=== PATIENT | female | born 1950 | race Caucasian/White ===

== ENCOUNTER → 2017-09-17 10:56 | Outpatient (CLI) | payer MEDICARE, MEDICAID, SELFPAY ==
[2017-09-17 11:45] LABS: Base Excess 8 mmol/L (-2 to +2); Blood Gas Specimen Type ART; O2 Delivery Device Nasal Can; PO2 45 mmHG (75-100); SITE R Radial; SO2 79 % (95-99); Time Given 1139; Total Carbon Dioxide 35 mmol/L; pCO2 54.7 mmHg (35-45); pH 7.39 (7.35-7.45)
== END ==
PROVIDERS: Family Provider Family Medicine; PCP Family Medicine; Visit Provider Nurse Practitioner Acute Care
DX: J96.10 Chronic respiratory failure, unspecified whether with hypoxia or hypercapnia (principal)
CPT/HCPCS: 36600; 82803

== ENCOUNTER → 2017-11-09 09:54 | Outpatient (CLI) | payer MEDICARE, MEDICAID, SELFPAY | PROVIDERS: Family Provider Family Medicine; PCP Family Medicine; Visit Provider Nurse Practitioner Acute Care | DX: R06.00 Dyspnea, unspecified (principal); J96.11 Chronic respiratory failure with hypoxia; Z98.890 Other specified postprocedural states | CPT/HCPCS: 93306 ==

== ENCOUNTER → 2018-02-28 11:09 | Outpatient (CLI) | payer MEDICARE, MEDICAID, SELFPAY ==
--- NOTE | 2018-03-01 10:50 | PFT ---
INTRODUCTION: The patient is a 67-year-old female that presents for pulmonary function testing secondary to a diagnosis of COPD. Respiratory therapy reports that the patient did not follow directions. Bronchodilators were used during testing. INTERPRETATION: Forced expiration spirometry demonstrates the presence of a very severe large airways obstructive ventilatory defect. There was a significant response to aerosolized bronchodilators. Spirograms are of poor quality and do not plateau indicating slow emptying of the lungs. Body plethysmography was performed and reveals an elevated RV to 180% of predicted, indicative of underlying air trapping. Diffusing capacity by single breath CO is severely reduced at 17% of predicted. When compared to previous pulmonary function studies dated August 2016 there has been reductions in the patient's FEV1 and DLCO. IMPRESSION: These pulmonary function studies demonstrate the presence of a partially reversible very severe large airways obstructive ventilatory defect with associated air trapping and symmetric reduction in diffusing capacity.
== END ==
PROVIDERS: Family Provider Family Medicine; PCP Family Medicine; Referring Provider Internal Medicine Critical Care Medicine; Visit Provider Internal Medicine Critical Care Medicine
DX: I50.32 Chronic diastolic (congestive) heart failure (principal); J44.9 Chronic obstructive pulmonary disease, unspecified; J96.11 Chronic respiratory failure with hypoxia
CPT/HCPCS: 94060; 94726; 94729

== ENCOUNTER → 2018-03-04 10:59 | Outpatient (CLI) | payer MEDICARE, MEDICAID, SELFPAY ==
[2018-03-04 11:00] VITALS: PULSE 108; PULSE 109; PULSE 111; PULSE 114; PULSE 116; PULSE 90; PULSE 96; O2SAT 83; O2SAT 84; O2SAT 87; O2SAT 88; O2SAT 90; O2SAT 91; O2SAT 94
--- NOTE | 2018-03-04 11:36 | CPS ---
PT ARRIVED ON 5L PULSE DOSE. PLACED ON ROOM AIR. SATS 83% ON ROOM AIR. PT PATIENT BACK ON 5L PULSE DOSE. SATS INCREASED TO 88. PT WALKED AND AT 3 MINUTES HAD TO INCREASE TO 6L CONTINUOS FLOW NC. SATS WERE 84%. MINUTE 4 SATS WERE 90% ON 6L CONTINUOS.
--- NOTE | 2018-03-04 12:39 | PCM.PSN.6M ---
PSN 6 Minute Walk Test - 6 Minute Walk Test 6 Minute Walk Test: 6 Minute Walk Test PSN:6-Minute Walk Test Start: 03/04/18 11:31 Freq: Status: Active Protocol: [id number] Document 03/04/18 11:00 EW (Rec: 03/04/18 11:35 EW [id number]) 6 Minute Walk Test Date Performed 03/04/18 Time Performed 11:00 Height 64 ft Weight: 81.647 kg Weight in Pounds 180.[address]: Wu Nava Assistive device used: None Pre-test Oxygen Delivery Method Room Air Pulse Ox (%) 83 Pulse Rate (60-100 beats/min) 90 Dyspnea Mike Scale (0-10) 1 Exertion Mike Scale (6-20) 8 1st minute Oxygen Flow Rate (L/min) (L/min) 5 Oxygen Delivery Method Nasal Cannula Pulse Ox (%) 88 Pulse Rate (60-100 beats/min) 108 H 2nd minute Oxygen Flow Rate (L/min) (L/min) 5 Oxygen Delivery Method Nasal Cannula Pulse Ox (%) 84 Pulse Rate (60-100 beats/min) 114 H 3rd minute Oxygen Flow Rate (L/min) (L/min) 6 Oxygen Delivery Method Nasal Cannula Pulse Ox (%) 84 Pulse Rate (60-100 beats/min) 111 H Number of Rests Taken 1 4th minute Oxygen Flow Rate (L/min) (L/min) 6 Oxygen Delivery Method Nasal Cannula Pulse Ox (%) 90 Pulse Rate (60-100 beats/min) 109 H 5th minute Oxygen Flow Rate (L/min) (L/min) 6 Oxygen Delivery Method Nasal Cannula Pulse Ox (%) 87 Pulse Rate (60-100 beats/min) 116 H Number of Rests Taken 1 6th minute Oxygen Flow Rate (L/min) (L/min) 6 Oxygen Delivery Method Nasal Cannula Pulse Ox (%) 91 Pulse Rate (60-100 beats/min) 111 H Post-test Oxygen Flow Rate (L/min) (L/min) 6 Oxygen Delivery Method Nasal Cannula Pulse Ox (%) 94 Pulse Rate (60-100 beats/min) 96 Dyspnea Mike Scale (0-10) 3 Exertion Mike Scale (6-20) 13 Full Laps Walked 5 Partial Lap, Number of Tiles Walked 0 Total Distance Walked (ft) 295 03/04/18 11:36 Cardiopulmonary Services by Earlene Raza PT ARRIVED ON 5L PULSE DOSE. PLACED ON ROOM AIR. SATS 83% ON ROOM AIR. PT PATIENT BACK ON 5L PULSE DOSE. SATS INCREASED TO 88. PT WALKED AND AT 3 MINUTES HAD TO INCREASE TO 6L CONTINUOS FLOW NC. SATS WERE 84%. MINUTE 4 SATS WERE 90% ON 6L CONTINUOS. Initialized on 03/04/18 11:36 - END OF NOTE - Interpretation Interpretation: Patient arrived on 5 L pulse dose and was noted to be 83% on room air. Saturations improved to 88% on 5 L pulse dose. At 3 minutes, patient had to be increased to 6 L continuous flow secondary to sats of 84%. Saturations did drop to 87%. In total, patient was able to ambulate only 295 feet over the course of 6 minutes with 2 breaks. These findings are consistent with a respiratory limitation exercise tolerance - Recommendations Recommendations: The patient requires 5 L pulse dose at rest, but at least 6 L continuous flow with any exertion.
== END ==
PROVIDERS: Family Provider Family Medicine; PCP Family Medicine; Referring Provider Internal Medicine Critical Care Medicine; Visit Provider Internal Medicine Critical Care Medicine
DX: I50.32 Chronic diastolic (congestive) heart failure (principal); J44.9 Chronic obstructive pulmonary disease, unspecified; J96.11 Chronic respiratory failure with hypoxia
CPT/HCPCS: 94618

== ENCOUNTER 2018-07-15 16:56 | Inpatient (IN) | payer MEDICARE, MEDICAID, SELFPAY ==
[2018-06-07 11:18] VITALS: BMI 32.5
[2018-07-15] VITALS (12 sets, daily range): BP systolic 115–141; BP diastolic 64–73; PULSE 106–121; RESP 15–28; TEMP 37.1–37.4; O2SAT 87–97; BMI 33.5; BMI 32.1
--- NOTE | 2018-07-15 17:15 | EKG12_ITS ---
Test Reason : SOB Blood Pressure : / mmHG Vent. Rate : 108 BPM Atrial Rate : 108 BPM P-R Int : 120 ms QRS Dur : 088 ms QT Int : 344 ms P-R-T Axes : 056 052 046 degrees QTc Int : 460 ms Sinus tachycardia Otherwise normal ECG Confirmed by CARLEE GREEN, TAMMIE ([id number]), loan expeditor SHARAN ANDRES ([id number]) on 07/17/2018 1:33:38 PM Referred By: ROSALIND Confirmed By:TAMMIE BEJARANO MD
[2018-07-15] MEDS: Albuterol 2.5 MG/3 ML VIAL.NEB. INHALATION ×3 (17:33→17:52)
[2018-07-15] MEDS: Ipratropium/Albuterol Sulfate 3 ML AMPUL.NEB INHALATION ×2 (17:33→22:53)
[2018-07-15] MEDS: MethylPREDNISolone 125 MG/2 ML Vial 60 MG IV (17:52)
--- NOTE | 2018-07-15 17:54 | RAD_ITS ---
STUDY: X-RAY CHEST REASON FOR EXAM: Female, 67 years old. Dyspnea, hypoxia, cough TECHNIQUE: PA and lateral views of the chest. COMPARISON: Prior study of 06/21/2014 FINDINGS: There are streaky fibrotic or atelectatic changes of the lung bases. There is no demonstrated pleural abnormality. Normal size heart. Normal mediastinum and ronnie. Normal visualized pulmonary arteries. There are calcified plaques of the aortic arch. Normal visualized thoracic spine. Normal visualized ribs, clavicles, and shoulders. There is no demonstrated abnormality of the visualized soft tissue structures of the upper abdomen. RAD/Chest PA and Lateral IMPRESSION: Streaky fibrotic or atelectatic changes of the lung bases, new in the interval. Calcified plaques of the aortic arch. Electronically Signed: Alexy Plaza MD at 18:14 EDT , Service support ,
--- NOTE | 2018-07-15 17:59 | CPS ---
Per pt and family pt wears 6L oxygen and is non-compliant with pap therapy at home.
[2018-07-15 18:03] LABS: Absolute Lymphocyte Count 3.98 X10^3/ul (0.83-4.51); Basophil# 0.01 X10^3/uL; Hematocrit 36.7 % (37-47); Hemoglobin 11.2 g/dl (12.0-15.0); Lymphocyte # 3.98 X10^3/ul (4.0); Lymphocyte % 18.2 % (19-41); Mean Corp Hgb Conc 30.5 g/gl (32-36); Mean Corpuscular Hgb 28.9 pg (27.0-32.0); Mean Corpuscular Volume 94.8 fL (81-99); Mean Platelet Vol. 9.7 fl (6.2-12.0); Monocyte# 0.74 X10^3/uL; Monocyte% 3.4 % (0-10); Neutrophil # 16.95 X10^3/uL (2.7-7.7); Neutrophil % 77.8 % (47-70); POSITIVE COUNT NO; POSITIVE DIFFERENTIAL NO; POSITIVE MORPHOLOGY NO; Platelet Count 250 K/mm3 (150-450); RBC Distribution Width CV 13.7 % (11.6-14.6); RBC Distribution Width SD 47.2 fl (35.1-43.9); Red Blood Count 3.87 M/mm3 (4.2-5.4); White Blood Count 21.8 K/mm3 (4.4-11.0)
[2018-07-15 18:13] LABS: Anion Gap 4 (5-15); BUN 19 mg/dL (7-18); BUN/Creat Ratio 15.4 RATIO (10-20); Calcium,Total 8.6 mg/dL (8.5-10.1); Chloride 96 mmol/L (98-107); Creatinine, Serum 1.23 mg/dL (0.55-1.02); EST Glomerular Filtration Rate 46 mL/min (>60); Est Glom Filt Rate - Afr Amer 56 mL/min (>60); Estimated Creatinine Clearance 37.28 ml/min; Glucose 211 mg/dL (74-106); Potassium 5.3 mmol/L (3.5-5.1); Sodium Level 135 mmol/L (136-145)
--- NOTE | 2018-07-15 19:28 | ED.VIS.GEN ---
History of Present Illness Chief Complaint: Shortness of Breath Informant: Patient, Family Onset: Days Context: Sudden Onset Timing: Continuous Quality: Increased shortness of breath, productive cough and wheezing Location: Respiratory Current Severity: Moderate Maximum Severity: Severe Worsened by: Activity Relieved by: Nothing Associated Symptoms: Patient is O2 dependent, 6 L by nasal cannula Narrative: Patient is an elderly woman with history of COPD on home oxygen at 6 L by nasal cannula. Her insulation hoseman is Dr. Wu Nava. She presents with cough that is productive, subjective fever, shortness of breath at rest and increased shortness of breath with minimal activity. She does complain of nasal symptoms. She reports immunization for influenza and Pneumovax. She denies history of PE or DVT. She denies leg pain, swelling or discoloration. She states she does not feel well. Prior similar symptoms: Yes Recent Illness/Hospitalization: No - Past Medical History (1) COPD exacerbation Status: Acute (2) Chronic diastolic CHF (congestive heart failure) Status: Chronic (3) Chronic hypoxemic respiratory failure Status: Chronic (4) Chronic respiratory failure Status: Chronic (5) Crohn's disease in remission Status: Chronic Past Medical History - Allergies and Home Meds Allergies/Adverse Reactions: Allergies No Known Allergies Allergy (Verified 07/15/18 16:57) Primary Care Physician: Darien Beard DO [Primary Care Provider] - Prior records reviewed: Yes Surgical History: noncontributory, - Lives: With Family Smoking Status: Former smoker Alcohol: None Drugs: None - Family History Maternal Family History: Family History (Last Reviewed 03/11/18 @ 11:27 by MEKHI Mckeon) Mother Colon cancer Father Heart disease Mother Heart disease Family History: Reports: Cancer - Colorectal Paternal Family History: Family History (Last Reviewed 03/11/18 @ 11:27 by MEKHI Mckeon) Mother Colon cancer Father Heart disease Mother Heart disease Family History: Reports: Heart Disease - ?[place] Review of Systems General: Reports: Chills, Fever, Subjective. Denies: Sweats, Weight loss Eyes: Denies: Visual changes - bilaterally, Diplopia ENT: Denies: Bilateral ear pain, Rhinorrhea, Sore throat Cardiovascular: Reports: Palpitations. Denies: Chest pain, Heart racing Respiratory: Reports: Dyspnea, Cough, Sputum, Dyspnea on exertion. Denies: Orthopnea, Paroxysmal nocturnal dyspnea Gastrointestinal: Denies: Abdominal pain, Nausea, Vomiting, Diarrhea, Melena, Hematochezia Genitourinary: Denies: Dysuria, Hematuria, Frequency Musculoskeletal: Denies: Back pain, Extremity Pain Skin: Denies: Rash, Wounds Neurological: Denies: Headache, Weakness, Numbness Hematologic: Denies: Easy bruising, Easy bleeding Allergy: Denies: Uticaria, Swelling of the mouth Physical Exam Vital Signs/Narrative: Vital Signs Temp Pulse Resp BP Pulse Ox 07/15/18 18:00 121 H 20 H 96 07/15/18 16:57 99.0 F 113 H 20 H 121/64 H 87 Inital Vital Signs reviewed: Yes General: Well nourished, Well developed, Acute Distress Head: Normocephalic, Atraumatic Eyes: Perrl, EOMI. Negative for: Pale conjunctiva, Scleral icterus ENT: Moist mucous membranes, No rhinorrhea, TM's clear Neck: Supple, Nontender, No lymphadenopathy, No JVD, - Cardiovascular: Regular rhythm, No murmurs, Normal S1, Normal S2, Tachycardia Respiratory: Chest nontender, Rales, Wheezing, Decreased Air Movement, - - There is use of accessory muscles. Abdomen: Soft, Nontender, Nondistended, Normal bowel sounds, No masses Back: Nontender, Normal Inspection Extremities: Nontender, No edema, - - There is no asymmetry, swelling, discoloration, leg vein distention, palpable cords or tenderness along the distribution of the deep venous system. Skin: Normal color, No rash. Negative for: Cyanosis, Jaundice Neurological: Alert, Oriented x3, Cranial nerves II-XII grossly intact, Normal Strength, Normal Sensation Psychological: Normal affect, Normal Mood Diagnostic/Tx/Re-eval Chest X-Ray - ED: 2 View, Read by ED Physician, Normal, Heart, Mediastinum, Bony Structures, Chronic Changes, - - Changes noted at both bases. There is no discrete infiltrate. Impressions Chest X-Ray 07/15/18 17:54 IMPRESSION: Streaky fibrotic or atelectatic changes of the lung bases, new in the interval. Calcified plaques of the aortic arch. Electronically Signed: Alexy Plaza MD at 18:14 EDT , Service support , 07/15/18 17:54 Chest PA and Lateral [RAD] Stat Laboratory Results 07/15/18 07/15/18 17:45 17:45 WBC 21.8 H RBC 3.87 L Hgb 11.2 L Hct 36.7 L MCV 94.8 MCH 28.9 MCHC 30.5 L RDW 13.7 RDW Differential 47.2 H Plt Count 250 MPV 9.7 Immature Gran % (Auto) 0.600 Neut % (Auto) 77.8 H Lymph % (Auto) 18.2 L [place] % (Auto) 3.4 Eos % (Auto) 0.0 Baso % (Auto) 0.0 Absolute Neuts (auto) 17.0 H Absolute Lymphs (auto) 3.98 Total Counted Not Reportable Sodium 135 L Potassium 5.3 H Chloride 96 L Carbon Dioxide 35.0 H Anion Gap 4 L BUN 19 H Creatinine 1.23 H Estim Creat Clear Calc 37.28 Est GFR (MDRD) Af Amer 56 L Est GFR (MDRD) Non-Af 46 L BUN/Creatinine Ratio 15.4 Glucose 211 H Calcium 8.6 Impressions Chest X-Ray 07/15/18 17:54 IMPRESSION: Streaky fibrotic or atelectatic changes of the lung bases, new in the interval. Calcified plaques of the aortic arch. Electronically Signed: Alexy Plaza MD at 18:14 EDT , Service support , 07/15/18 17:54 Chest PA and Lateral [RAD] Stat Laboratory Results 07/15/18 07/15/18 17:45 17:45 WBC 21.8 H RBC 3.87 L Hgb 11.2 L Hct 36.7 L MCV 94.8 MCH 28.9 MCHC 30.5 L RDW 13.7 RDW Differential 47.2 H Plt Count 250 MPV 9.7 Immature Gran % (Auto) 0.600 Neut % (Auto) 77.8 H Lymph % (Auto) 18.2 L [place] % (Auto) 3.4 Eos % (Auto) 0.0 Baso % (Auto) 0.0 Absolute Neuts (auto) 17.0 H Absolute Lymphs (auto) 3.98 Total Counted Not Reportable Sodium 135 L Potassium 5.3 H Chloride 96 L Carbon Dioxide 35.0 H Anion Gap 4 L BUN 19 H Creatinine 1.23 H Estim Creat Clear Calc 37.28 Est GFR (MDRD) Af Amer 56 L Est GFR (MDRD) Non-Af 46 L BUN/Creatinine Ratio 15.4 Glucose 211 H Calcium 8.6 - Medical Decision Making With subjective fever, shortness of breath, productive cough history of COPD on oxygen need to evaluate for exacerbation of COPD versus pneumonia. Need to rule out pneumothorax. Doubt pulmonary embolus but always in the diagnosis. With elevated white count lactate and blood cultures were obtained. She did receive dose of levofloxacin. Since she does not have obvious source she was not diagnosed with sepsis. She received DuoNeb, 3 albuterol treatments, Solu-Medrol IV push. ED Disposition - Plan for ED Patient: Disposition: Acute Care Hospital [facility] Diagnosis: COPD with exacerbation, Leukocytosis, Sinus tachycardia by electrocardiogram, Hypoxia Referrals: Darien Beard DO [Primary Care Provider] -
--- NOTE | 2018-07-15 19:33 | ED.DCSUM_ITS ---
History of Present Illness Chief Complaint: Shortness of Breath Informant: Patient, Family Onset: Days Context: Sudden Onset Timing: Continuous Quality: Increased shortness of breath, productive cough and wheezing Location: Respiratory Current Severity: Moderate Maximum Severity: Severe Worsened by: Activity Relieved by: Nothing Associated Symptoms: Patient is O2 dependent, 6 L by nasal cannula Narrative: Patient is an elderly woman with history of COPD on home oxygen at 6 L by nasal cannula. Her sales mgr is Dr. Wu Nava. She presents with cough that is productive, subjective fever, shortness of breath at rest and increased sh ortness of breath with minimal activity. She does complain of nasal symptoms. She reports immunization for influenza and Pneumovax. She denies history of PE or DVT. She denies leg pain, swelling or discoloration. She states she does not feel well. Prior similar symptoms: Yes Recent Illness/Hospitalization: No - Past Medical History (1) COPD exacerbation Status: Acute (2) Chronic diastolic CHF (congestive heart failure) Status: Chronic (3) Chronic hypoxemic respiratory failure Status: Chronic (4) Chronic respiratory failure Status: Chronic (5) Crohn's disease in remission Status: Chronic Past Medical History - Allergies and Home Meds Allergies/Adverse Reactions: Allergies No Known Allergies Allergy (Verified 07/15/18 16:57) Primary Care Physician: Darien Beard DO [Primary Care Provider] - Prior records reviewed: Yes Surgical History: noncontributory, - Lives: With Family Smoking Status: Former smoker Alcohol: None Drugs: None - Family History Maternal Family History: Family History (Last Reviewed 03/11/18 @ 11:27 by MEKHI Mckeon) Mother Colon cancer Father Heart disease Mother Heart disease Family History: Reports: Cancer - Colorectal Paternal Family History: Family History (Last Reviewed 03/11/18 @ 11:27 by MEKHI Mckeon) Mother Colon cancer Father Heart disease Mother Heart disease Family History: Reports: Heart Disease - ?[place] Review of Systems General: Reports: Chills, Fever, Subjective. Denies: Sweats, Weight loss Eyes: Denies: Visual changes - bilaterally, Diplopia ENT: Denies: Bilateral ear pain, Rhinorrhea, Sore throat Cardiovascular: Reports: Palpitations. Denies: Chest pain, Heart racing Respiratory: Reports: Dyspnea, Cough, Sputum, Dyspnea on exertion. Denies: Orthopnea, Paroxysmal nocturnal dyspnea Gastrointestinal: Denies: Abdominal pain, Nausea, Vomiting, Diarrhea, Melena, Hematochezia Genitourinary: Denies: Dysuria, Hematuria, Frequency Musculoskeletal: Denies: Back pain, Extremity Pain Skin: Denies: Rash, Wounds Neurological: Denies: Headache, Weakness, Numbness Hematologic: Denies: Easy bruising, Easy bleeding Allergy: Denies: Uticaria, Swelling of the mouth Physical Exam Vital Signs/Narrative: Vital Signs Temp Pulse Resp BP Pulse Ox 07/15/18 18:00 121 H 20 H 96 07/15/18 16:57 99.0 F 113 H 20 H 121/64 H 87 Inital Vital Signs reviewed: Yes General: Well nourished, Well developed, Acute Distress Head: Normocephalic, Atraumatic Eyes: Perrl, EOMI. Negative for: Pale conjunctiva, Scleral icterus ENT: Moist mucous membranes, No rhinorrhea, TM's clear Neck: Supple, Nontender, No lymphadenopathy, No JVD, - Cardiovascular: Regular rhythm, No murmurs, Normal S1, Normal S2, Tachycardia Respiratory: Chest nontender, Rales, Wheezing, Decreased Air Movement, - - There is use of accessory muscles. Abdomen: Soft, Nontender, Nondistended, Normal bowel sounds, No masses Back: Nontender, Normal Inspection Extremities: Nontender, No edema, - - There is no asymmetry, swelling, discoloration, leg vein distention, palpable cords or tenderness along the distribution of the deep venous system. Skin: Normal color, No rash. Negative for: Cyanosis, Jaundice Neurological: Alert, Oriented x3, Cranial nerves II-XII grossly intact, Normal Strength, Normal Sensation Psychological: Normal affect, Normal Mood Diagnostic/Tx/Re-eval Chest X-Ray - ED: 2 View, Read by ED Physician, Normal, Heart, Mediastinum, Bony Structures, Chronic Changes, - - Changes noted at both bases. There is no discrete infiltrate. Impressions Chest X-Ray 07/15/18 17:54 IMPRESSION: Streaky fibrotic or atelectatic changes of the lung bases, new in the interval. Calcified plaques of the aortic arch. Electronically Signed: Alexy Plaza MD at 18:14 EDT , Service support , 07/15/18 17:54 Chest PA and Lateral [RAD] Stat Laboratory Results 07/15/18 07/15/18 17:45 17:45 WBC 21.8 H RBC 3.87 L Hgb 11.2 L Hct 36.7 L MCV 94.8 MCH 28.9 MCHC 30.5 L RDW 13.7 RDW Differential 47.2 H Plt Count 250 MPV 9.7 Immature Gran % (Auto) 0.600 Neut % (Auto) 77.8 H Lymph % (Auto) 18.2 L [place] % (Auto) 3.4 Eos % (Auto) 0.0 Baso % (Auto) 0.0 Absolute Neuts (auto) 17.0 H Absolute Lymphs (auto) 3.98 Total Counted Not Reportable Sodium 135 L Potassium 5.3 H Chloride 96 L Carbon Dioxide 35.0 H Anion Gap 4 L BUN 19 H Creatinine 1.23 H Estim Creat Clear Calc 37.28 Est GFR (MDRD) Af Amer 56 L Est GFR (MDRD) Non-Af 46 L BUN/Creatinine Ratio 15.4 Glucose 211 H Calcium 8.6 Impressions Chest X-Ray 07/15/18 17:54 IMPRESSION: Streaky fibrotic or atelectatic changes of the lung bases, new in the interval. Calcified plaques of the aortic arch. Electronically Signed: Alexy Plaza MD at 18:14 EDT , Service support , 07/15/18 17:54 Chest PA and Lateral [RAD] Stat Laboratory Results 07/15/18 07/15/18 17:45 17:45 WBC 21.8 H RBC 3.87 L Hgb 11.2 L Hct 36.7 L MCV 94.8 MCH 28.9 MCHC 30.5 L RDW 13.7 RDW Differential 47.2 H Plt Count 250 MPV 9.7 Immature Gran % (Auto) 0.600 Neut % (Auto) 77.8 H Lymph % (Auto) 18.2 L [place] % (Auto) 3.4 Eos % (Auto) 0.0 Baso % (Auto) 0.0 Absolute Neuts (auto) 17.0 H Absolute Lymphs (auto) 3.98 Total Counted Not Reportable Sodium 135 L Potassium 5.3 H Chloride 96 L Carbon Dioxide 35.0 H Anion Gap 4 L BUN 19 H Creatinine 1.23 H Estim Creat Clear Calc 37.28 Est GFR (MDRD) Af Amer 56 L Est GFR (MDRD) Non-Af 46 L BUN/Creatinine Ratio 15.4 Glucose 211 H Calcium 8.6 - Medical Decision Making With subjective fever, shortness of breath, productive cough history of COPD on oxygen need to evaluate for exacerbation of COPD versus pneumonia. Need to rule out pneumothorax. Doubt pulmonary embolus but always in the diagnosis. With elevated white count lactate and blood cultures were obtained. She did receive dose of levofloxacin. Since she does not have obvious source she was not diagnosed with sepsis. She received DuoNeb, 3 albuterol treatments, Solu-Medrol IV push. ED Disposition - Plan for ED Patient: Disposition: Acute Care Hospital [facility] Diagnosis: COPD with exacerbation, Leukocytosis, Sinus tachycardia by electrocardiogram, Hypoxia Referrals: Darien Beard DO [Primary Care Provider] -
--- NOTE | 2018-07-15 19:52 | PCM.HP.STD ---
Problem List (1) Chronic diastolic CHF (congestive heart failure) Status: Chronic (2) Stage 4 very severe COPD by GOLD classification Status: Chronic Comment: FEV1 23% predicted (3) ileastomy reversal Status: Chronic (4) Chronic hypoxemic respiratory failure Status: Chronic (5) Anxiety disorder Status: Chronic Qualifiers: Anxiety disorder type: unspecified anxiety disorder Qualified Code(s): F41.9 - Anxiety disorder, unspecified (6) Crohn's disease in remission Status: Chronic (7) COPD (chronic obstructive pulmonary disease) Status: Chronic History of Present Illness Date of Admission: 07/15/18 Chief Complaint: Chest hurts, shortness of breath. The patient is a 67 year old F with past medical history as mentioned above presented to the emergency room because of shortness of breath and chest pain. The patient is very poor informant and was not able to provide consistent history. Initially, she mentioned that the main thing that brought her in today is chest hurting. Later, she mentioned that she came in because of both chest pain or shortness of breath. She states that she has been sick for a week with chest pain, across upper chest, not radiating, associated with shortness of breath at rest which aggravated by minimal activity, not relieved by rest. She reports associated cough with small amount of clear sputum. She complained of subjective fever at home with sweating. She denied sore throat, sinus or nasal congestion. She has history of severe COPD with chronic hypoxic respiratory failure on oxygen at 6 L at baseline. She has history of Crohn's disease status post surgery and reversal of ileostomy and appeared to be stable and in remission. She has history of anxiety and depression and she has been on mirtazapine, BuSpar and Ativan as needed. In the emergency department, patient was afebrile, dyspneic, tachypneic and tachycardic, pulse ox was 87% on 5 L on arrival. Routine blood work was remarkable for leukocytosis, hemoglobin of 11.2 g/dL, potassium of 5.3, BUN of 123. Her lactic acid was 2. EKG revealed sinus tachycardia, normal QRS, normal [place] interval, no acute ischemic changes. Chest x-ray showed bilateral basilar atelectasis with fibrotic changes, no acute infiltrate or consolidation. She is being admitted for acute COPD exacerbation with acute on chronic hypoxic respiratory failure Past Medical History Past Medical History (Chronic Problems): Chronic Problems (Last Updated 07/15/18 @ 19:52 by Syed Figueroa MD) COPD with exacerbation (Chronic) Chronic diastolic CHF (congestive heart failure) (Chronic) Stage 4 very severe COPD by GOLD classification (Chronic) FEV1 23% predicted ileastomy reversal (Chronic) Chronic hypoxemic respiratory failure (Chronic) Anxiety disorder (Chronic) Crohn's disease in remission (Chronic) COPD (chronic obstructive pulmonary disease) (Chronic) Medical History: Medical History (Last Updated 07/15/18 @ 19:52 by Syed Figueroa MD) ileastomy reversal (Chronic) Chronic hypoxemic respiratory failure (Chronic) J96.11 Anxiety disorder (Chronic) F41.9 Crohn's disease in remission (Chronic) K50.90 COPD (chronic obstructive pulmonary disease) (Chronic) J44.9 Allergies No Known Allergies Allergy (Verified 07/15/18 16:57) Home Medications: Ambulatory Orders Medication Instructions Recorded Acetaminophen [Tylenol Tablet] 650 mg PO Q6H PRN PRN #0 tab 07/07/14 Lorazepam [Ativan] 0.5 mg PO Q6H PRN PRN #14 tab 07/07/14 albuterol sulfate 2.5 mg/3 mL 2.5 mg INHALATION Q4H #180 vial 18 (0.083 %) solution for nebulization albuterol sulfate HFA 90 2 puff INHALATION Q6H PRN #18 g 04/04/18 mcg/actuation aerosol inhaler Budesonide/Formoterol 160/4.5 2 puff INHALATION BID 07/15/18 [Symbicort] Famotidine [Pepcid] 20 mg PO BID 07/15/18 Mirtazapine [Remeron] 7.5 - 15 mg PO QHS 07/15/18 Psyllium Husk (with Sugar) 7 gm PO BID 07/15/18 [Wal-Mucil 100% Natural Fiber] Umeclidinium [place] Inhaler 1 inh INHALATION DAILY 07/15/18 [Incruse Ellipta] busPIRone [Buspar] 15 mg PO TID 07/15/18 Surgical History: - - Intestinal surgery/ileostomy for Crohn's disease with reversal of ileostomy. 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 Denies: Anorexia, Chills Eyes: Denies: Blurred vision, Double vision, Drainage, Redness HEENT: Denies: Difficulty Hearing, Ear Pain, Eye Pain, Nasal Congestion, Sore Throat Cardiovascular: Reports: Chest Pain. Denies: Edema, Heaviness, Light Headedness, Orthopnea, Paroxysmal Noc. Dyspnea, Syncope Respiratory: Reports: Cough, Pleuritic Pain, Shortness of Breath, Shortness of breath at rest, Shortness of breath upon exertion, Sputum production. Denies: Wheezing Gastrointestinal: Reports: Diarrhea. Denies: Abdominal Pain, Constipation, Hematochezia, Nausea, Melena, Vomiting Genitourinary: Denies: Dysuria, Frequency, Hematuria Musculoskeletal: Denies: Arm Pain, Back Pain, Foot Pain Skin: Denies: Dryness, Rash Neurological: Denies: Balance problems, Blurred vision, Slurred speech, Confusion, Headaches, Incoordination, Numbness Psychiatric: Reports: Anxiety, Depression Endocrine: Denies: Change in Body Habitus, Polydipsia VTE Information - Inpt Only VTE Present on Admission: No VTE Mechan Device Prophylaxis: None VTE Pharm Prophylaxis ordered?: Yes Patient Problems: Active and Suspected Problems (Last Updated 07/15/18 @ 19:52 by Syed Figueroa MD) Leukocytosis (Acute) Sinus tachycardia by electrocardiogram (Acute) Hypoxia (Acute) - Physical Exam General: Alert, Oriented x3, Cooperative, - - Moderately short of breath. HEENT: Atraumatic, PERRLA, EOMI, Normocephalic Oral: Moist Mucosa, No Gingival or Mucosal Lesions/ Ulcerations Neck: Supple, No JVD, Negative Carotid Bruits, Trachea Midline, Thyroid Normal Size and Texture Lungs: Diminished, Rhonchi, Short of Breath, Tachypneic, Wheezes, - - Markedly decreased breath sounds bilateral, bilateral wheezes, rhonchi. Cardiovascular: Regular rate, Regular Rhythm, Normal S1, Normal S2, PMI Normal, Tachycardic Abdomen: Bowel Sounds Present, Soft, Non Tender, Non-Distended, No Hepato-splenomegaly Extremities: No clubbing, No cyanosis, No edema Skin: No rashes, No breakdown Lymphatic: No Cervical, Supraclavicular, or Inguinal Adenopathy Neurological: Cranial nerves II-XII grossly intact, Motor Exam 5/5 strength throughout Psych/Mental Status: Normal Affect, Appropriate, Alert and oriented to time, place, person, mood and affect Vital Signs Temp Pulse Resp BP Pulse Ox 99.0 F 121 H 20 H 121/64 H 96 07/15/18 16:57 07/15/18 18:00 07/15/18 18:00 07/15/18 16:57 07/15/18 18:00 Oxygen Flow Rate (L/min) 5 Oxygen Delivery Method Nasal Cannula Weight: 195 lb Body Mass Index (BMI) 33.5 Laboratory Tests Past 24 Hrs 07/15/18 07/15/18 17:45 17:45 WBC 21.8 H RBC 3.87 L Hgb 11.2 L Hct 36.7 L MCV 94.8 MCH 28.9 MCHC 30.5 L RDW 13.7 RDW Differential 47.2 H Plt Count 250 MPV 9.7 Immature Gran % (Auto) 0.600 Neut % (Auto) 77.8 H Lymph % (Auto) 18.2 L [place] % (Auto) 3.4 Eos % (Auto) 0.0 Baso % (Auto) 0.0 Absolute Neuts (auto) 17.0 H Absolute Lymphs (auto) 3.98 Total Counted Not Reportable Sodium 135 L Potassium 5.3 H Chloride 96 L Carbon Dioxide 35.0 H Anion Gap 4 L BUN 19 H Creatinine 1.23 H Estim Creat Clear Calc 37.28 Est GFR (MDRD) Af Amer 56 L Est GFR (MDRD) Non-Af 46 L BUN/Creatinine Ratio 15.4 Glucose 211 H Calcium 8.6 Clinical Impression(s) from Imaging Studies Chest X-Ray 07/15/18 17:54 IMPRESSION: Streaky fibrotic or atelectatic changes of the lung bases, new in the interval. Calcified plaques of the aortic arch. Electronically Signed: Alexy Plaza MD at 18:14 EDT , Service support , Assessment/Plan All Active Problems (Last Updated 07/15/18 @ 19:52 by Syed Figueroa MD) Leukocytosis (Acute) Sinus tachycardia by electrocardiogram (Acute) Hypoxia (Acute) This is a 67 years old female patient presented to the emergency room because of chest pain or shortness of breath with cough, found to have acute COPD exacerbation with acute on chronic hypoxic respiratory failure and she is being admitted for treatment and evaluation. #1 acute COPD exacerbation: Chest x-ray reviewed, showed no acute infiltrate or consolidation. EKG reviewed, no acute changes. She does have leukocytosis but she mentioned that she was on steroids around 2-4 weeks ago. Lactic acid is 2, normal. Plan: Admit to PCU, cardiac monitoring, DuoNeb every 4 hours, albuterol as needed, IV Solu-Medrol, IV Levaquin, stat sputum culture, respiratory panel for viruses, urinalysis, urine culture, incentive spirometer, chest physiotherapy, repeat CBC and BMP tomorrow morning, PT OT evaluation and treatment. #2 acute on chronic hypoxic respiratory failure: Patient is on 6 L at home. At this time, she is on 5 L but she is very dyspneic, tachypneic and tachycardic. She remained dyspneic and tachypneic after IV Solu-Medrol, DuoNeb and albuterol in the ER. Plan as above, bronchodilators, IV steroids, IV antibiotics. #3 chest pain: Vague complaint. EKG revealed sinus tachycardia, no ischemic changes. Troponin was not done in the ER. Plan: Cardiac monitoring, serial cardiac enzymes, repeat EKG tomorrow morning, BNP. At this time, her chest pain seemed to be musculoskeletal and pleuritic secondary to coughing and if the cardiac enzymes and repeat EKG was unremarkable, I do not think that patient needs any further cardiac workup. #4 mild hyperkalemia/dehydration: Potassium is 5.3, no EKG changes. Plan for IV fluids, repeat potassium in 6 hours, repeat BMP tomorrow morning. #5 hyperglycemia: Without history of diabetes. Blood glucose is 211. Plan: Hemoglobin A1c, Accu-Cheks every 6 hours, sliding scale. #6 Crohn's disease: Complaint of chronic mild diarrhea, no bloody diarrhea or abdominal pain, stable, in remission. Continue fiber supplement. #7 anxiety/depression: Continue Remeron, BuSpar and Ativan. #8 DVT prophylaxis: Subcu Lovenox. This note was generated with [employer] dictation software. It may contain incorrect words, spelling, and punctuation that were not noted in checking the note before signing. Code Visit Inpatient E&M: 25745 Init Hosp L3
--- NOTE | 2018-07-15 19:57 | HP.PCM_ITS ---
Problem List (1) Chronic diastolic CHF (congestive heart failure) Status: Chronic (2) Stage 4 very severe COPD by GOLD classification Status: Chronic Comment: FEV1 23% predicted (3) ileastomy reversal Status: Chronic (4) Chronic hypoxemic respiratory failure Status: Chronic (5) Anxiety disorder Status: Chronic Qualifiers: Anxiety disorder type: unspecified anxiety disorder Qualified Code(s): F41.9 - Anxiety disorder, unspecified (6) Crohn's disease in remission Status: Chronic (7) COPD (chronic obstructive pulmonary disease) Status: Chronic History of Present Illness Date of Admission: 07/15/18 Chief Complaint: Chest hurts, shortness of breath. The patient is a 67 year old F with past medical history as mentioned above presented to the emergency room because of shortness of breath and chest pain. The patient is very poor informant and was not able to provide consistent history. Initially, she mentioned that the main thing that brought her in today is chest hurting. Later, she mentioned that she came in because of both chest pain or shortness of breath. She states that she has been sick for a week with chest pain, across upper chest, not radiating, associated with shortness of breath at rest which aggravated by minimal activity, not relieved by rest. She reports associated cough with small amount of clear sputum. She complained of subjective fever at home with sweating. She denied sore throat, sinus or nasal congestion. She has history of severe COPD with chronic hypoxic respiratory fa ilure on oxygen at 6 L at baseline. She has history of Crohn's disease status post surgery and reversal of ileostomy and appeared to be stable and in remission. She has history of anxiety and depression and she has been on mirtazapine, BuSpar and Ativan as needed. In the emergency department, patient was afebrile, dyspneic, tachypneic and tachycardic, pulse ox was 87% on 5 L on arrival. Routine blood work was remarkable for leukocytosis, hemoglobin of 11.2 g/dL, potassium of 5.3, BUN of 123. Her lactic acid was 2. EKG revealed sinus tachycardia, normal QRS, normal [place] interval, no acute ischemic changes. Chest x-ray showed bilateral basilar atelectasis with fibrotic changes, no acute infiltrate or consolidation. She is being admitted for acute COPD exacerbation with acute on chronic hypoxic respiratory failure Past Medical History Past Medical History (Chronic Problems): Chronic Problems (Last Updated 07/15/18 @ 19:52 by Syed Figueroa MD) COPD with exacerbation (Chronic) Chronic diastolic CHF (congestive heart failure) (Chronic) Stage 4 very severe COPD by GOLD classification (Chronic) FEV1 23% predicted ileastomy reversal (Chronic) Chronic hypoxemic respiratory failure (Chronic) Anxiety disorder (Chronic) Crohn's disease in remission (Chronic) COPD (chronic obstructive pulmonary disease) (Chronic) Medical History: Medical History (Last Updated 07/15/18 @ 19:52 by Syed Figueroa MD) ileastomy reversal (Chronic) Chronic hypoxemic respiratory failure (Chronic) J96.11 Anxiety disorder (Chronic) F41.9 Crohn's disease in remission (Chronic) K50.90 COPD (chronic obstructive pulmonary disease) (Chronic) J44.9 Allergies No Known Allergies Allergy (Verified 07/15/18 16:57) Home Medications: Ambulatory Orders Medication Instructions Recorded Acetaminophen [Tylenol Tablet] 650 mg PO Q6H PRN PRN #0 tab 07/07/14 Lorazepam [Ativan] 0.5 mg PO Q6H PRN PRN #14 tab 07/07/14 albuterol sulfate 2.5 mg/3 mL 2.5 mg INHALATION Q4H #180 vial 03/11/18 (0.083 %) solution for nebulization albuterol sulfate HFA 90 2 puff INHALATION Q6H PRN #18 g 04/04/18 mcg/actuation aerosol inhaler Budesonide/Formoterol 160/4.5 2 puff INHALATION BID 07/15/18 [Symbicort] Famotidine [Pepcid] 20 mg PO BID 07/15/18 Mirtazapine [Remeron] 7.5 - 15 mg PO QHS 07/15/18 Psyllium Husk (with Sugar) 7 gm PO BID 07/15/18 [Wal-Mucil 100% Natural Fiber] Umeclidinium [place] Inhaler 1 inh INHALATION DAILY 07/15/18 [Incruse Ellipta] busPIRone [Buspar] 15 mg PO TID 07/15/18 Surgical History: - - Intestinal surgery/ileostomy for Crohn's disease with reversal of ileostomy. 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 Denies: Anorexia, Chills Eyes: Denies: Blurred vision, Double vision, Drainage, Redness HEENT: Denies: Difficulty Hearing, Ear Pain, Eye Pain, Nasal Congestion, Sore Throat Cardiovascular: Reports: Chest Pain. Denies: Edema, Heaviness, Light Headedness, Orthopnea, Paroxysmal Noc. Dyspnea, Syncope Respiratory: Reports: Cough, Pleuritic Pain, Shortness of Breath, Shortness of breath at rest, Shortness of breath upon exertion, Sputum production. Denies: Wheezing Gastrointestinal: Reports: Diarrhea. Denies: Abdominal Pain, Constipation, Hematochezia, Nausea, Melena, Vomiting Genitourinary: Denies: Dysuria, Frequency, Hematuria Musculoskeletal: Denies: Arm Pain, Back Pain, Foot Pain Skin: Denies: Dryness, Rash Neurological: Denies: Balance problems, Blurred vision, Slurred speech, Confusion, Headaches, Incoordination, Numbness Psychiatric: Reports: Anxiety, Depression Endocrine: Denies: Change in Body Habitus, Polydipsia VTE Information - Inpt Only VTE Present on Admission: No VTE Mechan Device Prophylaxis: None VTE Pharm Prophylaxis ordered?: Yes Patient Problems: Active and Suspected Problems (Last Updated 07/15/18 @ 19:52 by Syed Figueroa MD) Leukocytosis (Acute) Sinus tachycardia by electrocardiogram (Acute) Hypoxia (Acute) - Physical Exam General: Alert, Oriented x3, Cooperative, - - Moderately short of breath. HEENT: Atraumatic, PERRLA, EOMI, Normocephalic Oral: Moist Mucosa, No Gingival or Mucosal Lesions/ Ulcerations Neck: Supple, No JVD, Negative Carotid Bruits, Trachea Midline, Thyroid Normal Size and Texture Lungs: Diminished, Rhonchi, Short of Breath, Tachypneic, Wheezes, - - Markedly decreased breath sounds bilateral, bilateral wheezes, rhonchi. Cardiovascular: Regular rate, Regular Rhythm, Normal S1, Normal S2, PMI Normal, Tachycardic Abdomen: Bowel Sounds Present, Soft, Non Tender, Non-Distended, No Hepato- splenomegaly Extremities: No clubbing, No cyanosis, No edema Skin: No rashes, No breakdown Lymphatic: No Cervical, Supraclavicular, or Inguinal Adenopathy Neurological: Cranial nerves II-XII grossly intact, Motor Exam 5/5 strength throughout Psych/Mental Status: Normal Affect, Appropriate, Alert and oriented to time, place, person, mood and affect Vital Signs Temp Pulse Resp BP Pulse Ox 99.0 F 121 H 20 H 121/64 H 96 07/15/18 16:57 07/15/18 18:00 07/15/18 18:00 07/15/18 16:57 07/15/18 18:00 Oxygen Flow Rate (L/min) 5 Oxygen Delivery Method Nasal Cannula Weight: 195 lb Body Mass Index (BMI) 33.5 Laboratory Tests Past 24 Hrs 07/15/18 07/15/18 17:45 17:45 WBC 21.8 H RBC 3.87 L Hgb 11.2 L Hct 36.7 L MCV 94.8 MCH 28.9 MCHC 30.5 L RDW 13.7 RDW Differential 47.2 H Plt Count 250 MPV 9.7 Immature Gran % (Auto) 0.600 Neut % (Auto) 77.8 H Lymph % (Auto) 18.2 L [place] % (Auto) 3.4 Eos % (Auto) 0.0 Baso % (Auto) 0.0 Absolute Neuts (auto) 17.0 H Absolute Lymphs (auto) 3.98 Total Counted Not Reportable Sodium 135 L Potassium 5.3 H Chloride 96 L Carbon Dioxide 35.0 H Anion Gap 4 L BUN 19 H Creatinine 1.23 H Estim Creat Clear Calc 37.28 Est GFR (MDRD) Af Amer 56 L Est GFR (MDRD) Non-Af 46 L BUN/Creatinine Ratio 15.4 Glucose 211 H Calcium 8.6 Clinical Impression(s) from Imaging Studies Chest X-Ray 07/15/18 17:54 IMPRESSION: Streaky fibrotic or atelectatic changes of the lung bases, new in the interval. Calcified plaques of the aortic arch. Electronically Signed: Alexy Plaza MD at 18:14 EDT , Service support , Assessment/Plan All Active Problems (Last Updated 07/15/18 @ 19:52 by Syed Figueroa MD) Leukocytosis (Acute) Sinus tachycardia by electrocardiogram (Acute) Hypoxia (Acute) This is a 67 years old female patient presented to the emergency room because of chest pain or shortness of breath with cough, found to have acute COPD exacerbation with acute on chronic hypoxic respiratory failure and she is being admitted for treatment and evaluation. #1 acute COPD exacerbation: Chest x-ray reviewed, showed no acute infiltrate or consolidation. EKG reviewed, no acute changes. She does have leukocytosis but she mentioned that she was on steroids around 2-4 weeks ago. Lactic acid is 2, normal. Plan: Admit to PCU, cardiac monitoring, DuoNeb every 4 hours, albuterol as needed, IV Solu-Medrol, IV Levaquin, stat sputum culture, respiratory panel for viruses, urinalysis, urine culture, incentive spirometer, chest physiotherapy, repeat CBC and BMP tomorrow morning, PT OT evaluation and treatment. #2 acute on chronic hypoxic respiratory failure: Patient is on 6 L at home. At this time, she is on 5 L but she is very dyspneic, tachypneic and tachycardic. She remained dyspneic and tachypneic after IV Solu-Medrol, DuoNeb and albuterol in the ER. Plan as above, bronchodilators, IV steroids, IV antibiotics. #3 chest pain: Vague complaint. EKG revealed sinus tachycardia, no ischemic changes. Troponin was not done in the ER. Plan: Cardiac monitoring, serial cardiac enzymes, repeat EKG tomorrow morning, BNP. At this time, her chest pain seemed to be musculoskeletal and pleuritic secondary to coughing and if the cardiac enzymes and repeat EKG was unremarkable, I do not think that patient needs any further cardiac workup. #4 mild hyperkalemia/dehydration: Potassium is 5.3, no EKG changes. Plan for IV fluids, repeat potassium in 6 hours, repeat BMP tomorrow morning. #5 hyperglycemia: Without history of diabetes. Blood glucose is 211. Plan: Hemoglobin A1c, Accu-Cheks every 6 hours, sliding scale. #6 Crohn's disease: Complaint of chronic mild diarrhea, no bloody diarrhea or abdominal pain, stable, in remission. Continue fiber supplement. #7 anxiety/depression: Continue Remeron, BuSpar and Ativan. #8 DVT prophylaxis: Subcu Lovenox. This note was generated with [employer] dictation software. It may contain incorrect words, spelling, and punctuation that were not noted in checking the note before signing. Code Visit Inpatient E&M: 08066 Init Hosp L3
[2018-07-15] MEDS: BENZOCAINE/MENTHOL 1 LOZENGE MUCOUS MEM (20:13)
[2018-07-15] MEDS: levoFLOXacin IV 750 MG/150 ML BAG 100 MG IV (20:19)
--- NOTE | 2018-07-15 21:36 | EKG12_ITS ---
Test Reason : ADMIT Blood Pressure : / mmHG Vent. Rate : 109 BPM Atrial Rate : 109 BPM P-R Int : 118 ms QRS Dur : 088 ms QT Int : 344 ms P-R-T Axes : 055 053 058 degrees QTc Int : 463 ms Sinus tachycardia Otherwise normal ECG When compared with ECG of 15-JUL-2018 17:40, MANUAL COMPARISON REQUIRED, DATA IS UNCONFIRMED Confirmed by SUNSHINE RIVERA ([id number]), makeup editor SHARAN ANDRES ([id number]) on 07/18/2018 11:17:31 AM Referred By: VIRA Confirmed By:SUNSHINE RIVERA
[2018-07-15 22:02] LABS: BNP,B-Type NATRIURETIC PEPTIDE 137.9 pg/mL (0-100)
[2018-07-15] MEDS: 0.9% Normal Saline 1,000 ML 75 ML IV (22:27)
[2018-07-15 22:34] LABS: Potassium 3.8 mmol/L (3.5-5.1)
[2018-07-15] MEDS: guaiFENesin 600 MG Tablet PO (22:40)
[2018-07-15] MEDS: Famotidine 20 MG Tablet PO (22:40)
[2018-07-15] MEDS: busPIRone 15 MG TABLET PO (22:40)
[2018-07-15] MEDS: Mirtazapine 15 MG Tablet 7.5 MG PO (22:40)
[2018-07-15] MEDS: Insulin Lispro 100 UNIT/ML INSULN.PEN SC (22:42)
[2018-07-15 22:56] LABS: Bedside Glucose 296 mg/dL (70-110)
[2018-07-15] MEDS: LORazepam 0.5 MG Tablet PO (23:09)
[2018-07-16] VITALS (15 sets, daily range): BP systolic 120–151; BP diastolic 68–75; PULSE 95–107; RESP 16–22; TEMP 36.6–37.4; O2SAT 94–99
[2018-07-16 00:03] LABS: Reflex Lactate? Y
[2018-07-16 01:14] LABS: Lactic Acid 2.1 mmol/L (0.4-2.0)
[2018-07-16 01:41] LABS: Hemoglobin A1c 7.1 % (4.2-6.3)
[2018-07-16] MEDS: Ipratropium/Albuterol Sulfate 3 ML AMPUL.NEB INHALATION ×6 (02:04→23:00)
[2018-07-16 02:09] LABS: Bacteria 0 SEEN /hpf (None Seen); Mucous, Urine 0 SEEN /hpf (<or=2+)
[2018-07-16 02:15] LABS: Color, Urine Yellow (Yellow); Glucose, Dipstick Normal (Normal); Ketone-Dipstick Negative (Negative); Leukocyte Esterase-Dipstick 25 /ul (Negative); Nitrite-Dipstick Negative (Negative); Occult Blood-Urine 25 /ul (Negative); Protein-Dipstick 30 mg/dl (Negative); Urine Bilirubin Dipstick Negative (Negative); Urine Clarity Clear (Clear); Urine Urobilinogen Normal (Normal); Urine pH 6.5 (5.0 - 8.0)
[2018-07-16 02:19] LABS: Squamous Epithelial Cells - UA 0-5 SEEN /hpf (5-10)
[2018-07-16 02:21] LABS: White Blood Cells 0-5 SEEN /hpf (0-5)
[2018-07-16 02:22] LABS: Red Blood Cells-Urine 0-5 SEEN /hpf (0-5)
[2018-07-16 03:58] LABS: Absolute Lymphocyte Count 3.14 X10^3/ul (0.83-4.51); Absolute Neutrophil Count 10.9 X10^3/uL (2.0-7.7); Basophil# 0.01 X10^3/uL; Basophil% 0.1 % (0-1); Lymphocyte # 3.14 X10^3/ul (4.0); Mean Corp Hgb Conc 30.6 g/gl (32-36); Mean Corpuscular Hgb 28.7 pg (27.0-32.0); Mean Platelet Vol. 9.8 fl (6.2-12.0); Monocyte# 0.15 X10^3/uL; Monocyte% 1.1 % (0-10); Neutrophil # 10.94 X10^3/uL (2.7-7.7); Neutrophil % 76.7 % (47-70); POSITIVE COUNT NO; POSITIVE DIFFERENTIAL NO; POSITIVE MORPHOLOGY NO; Platelet Count 200 K/mm3 (150-450); RBC Distribution Width CV 13.5 % (11.6-14.6); RBC Distribution Width SD 46.5 fl (35.1-43.9); Red Blood Count 3.83 M/mm3 (4.2-5.4); White Blood Count 14.3 K/mm3 (4.4-11.0)
[2018-07-16 04:26] LABS: Anion Gap 6 (5-15); BUN 23 mg/dL (7-18); BUN/Creat Ratio 18.9 RATIO (10-20); Calcium,Total 8.1 mg/dL (8.5-10.1); Chloride 98 mmol/L (98-107); Creatinine, Serum 1.22 mg/dL (0.55-1.02); EST Glomerular Filtration Rate 46 mL/min (>60); Est Glom Filt Rate - Afr Amer 56 mL/min (>60); Estimated Creatinine Clearance 37.58 ml/min; Glucose 330 mg/dL (74-106); Potassium 4.2 mmol/L (3.5-5.1); Sodium Level 137 mmol/L (136-145)
[2018-07-16] MEDS: Acetaminophen 325 MG Tablet 650 MG PO ×3 (05:45→20:27)
[2018-07-16] MEDS: busPIRone 15 MG TABLET PO ×3 (05:45→21:37)
[2018-07-16] MEDS: Insulin Lispro 100 UNIT/ML INSULN.PEN SC ×4 (05:50→21:37)
--- NOTE | 2018-07-16 05:55 | EKG12_ITS ---
Test Reason : AM EKG Blood Pressure : / mmHG Vent. Rate : 106 BPM Atrial Rate : 106 BPM P-R Int : 124 ms QRS Dur : 098 ms QT Int : 346 ms P-R-T Axes : 070 055 065 degrees QTc Int : 459 ms Sinus tachycardia Otherwise normal ECG When compared with ECG of 15-JUL-2018 22:09, MANUAL COMPARISON REQUIRED, DATA IS UNCONFIRMED Confirmed by SUNSHINE RIVERA ([id number]), city editor SHARAN ANDRES ([id number]) on 07/18/2018 11:19:21 AM Referred By: VIRA Confirmed By:SUNSHINE RIVERA
[2018-07-16 06:45] LABS: Bedside Glucose 293 mg/dL (70-110)
[2018-07-16] MEDS: 0.9% Normal Saline 1,000 ML 75 ML IV (06:56)
[2018-07-16] MEDS: Famotidine 20 MG Tablet PO ×2 (09:43→21:37)
[2018-07-16] MEDS: guaiFENesin 600 MG Tablet PO ×2 (09:43→21:37)
[2018-07-16] MEDS: Enoxaparin 30 MG/0.3 ML Syringe SC (09:44)
[2018-07-16] MEDS: LORazepam 0.5 MG Tablet PO ×2 (09:47→21:42)
[2018-07-16] MEDS: Psyllium 1 PACKET PO ×2 (11:19→21:38)
--- NOTE | 2018-07-16 11:23 | PCM.DC ---
- Discharge Diagnoses Current Active Problems: Current Active and Chronic Problems (Last Updated 07/15/18 @ 19:52 by Syed Figueroa MD) COPD with exacerbation (Chronic) Leukocytosis (Acute) Sinus tachycardia by electrocardiogram (Acute) Hypoxia (Acute) You will use the following diet at home:: No restrictions Your food should be the consistency of: Regular Your liquids should be the consistency of: Regular/Thin Discharge Activity: Return to Normal Activity Allergies/Adverse Reactions: Allergies No Known Allergies Allergy (Verified 07/15/18 16:57) Medications to take at Discharge Acetaminophen [Tylenol Tablet] 650 mg PO Q6H PRN PRN #0 tab 07/07/14 Lorazepam [Ativan] 0.5 mg PO Q6H PRN PRN #14 tab 07/07/14 albuterol sulfate 2.5 mg/3 mL (0.083 %) solution for nebulization 2.5 mg INHALATION Q4H #180 vial 03/11/18 albuterol sulfate HFA 90 mcg/actuation aerosol inhaler 2 puff INHALATION Q6H PRN #18 g 04/04/18 Budesonide/Formoterol 160/4.5 [Symbicort 160/4.5 Mcg Inhaler (SP)] 2 puff INHALATION BID 07/15/18 Famotidine [Pepcid] 20 mg PO BID 07/15/18 Mirtazapine [Remeron] 7.5 - 15 mg PO QHS 07/15/18 Psyllium Husk (with Sugar) [Wal-Mucil 100% Natural Fiber] 7 gm PO BID 07/15/18 Umeclidinium [place] Inhaler [Incruse Ellipta Inhaler] 1 inh INHALATION DAILY 07/15/18 busPIRone [Buspar] 15 mg PO TID 07/15/18 Prednisone 10 mg PO UD #30 tab 07/16/18 levoFLOXacin tablet [Levaquin tablet] 750 mg PO DAILY #4 tablet 07/16/18 The following prescriptions were given: levoFLOXacin tablet [Levaquin tablet] 750 mg PO DAILY #4 tablet Prednisone 10 mg PO UD #30 tab Primary Care Physician: Darien Beard DO [Primary Care Provider] - Please follow up with your Primary Care Physician in: 2 weeks Test Results: Test results from this visit will be discussed in further detail at your follow-up appointment, if applicable. Please Follow Up With: Ana Paula Elliott NP-C When: 1 week Proposed Discharge Date: 07/16/18
[2018-07-16 11:45] LABS: Bedside Glucose 483 mg/dL (70-110)
--- NOTE | 2018-07-16 11:53 | CASEMGMT ---
RN CM Assessment Presentation: COPD exacerbation. Intro role of CM and purpose of RN CM assessment to patient in room. Pt is alert, oriented and able to participate in assessment. Demographics, PCP and Pharmacy verified. Pt voiced concerns re: moving from home to apartment in near future as she is having difficulty keeping up with her home. States her daughter and son are assisting with this and will help her move. RN CM also discussed assisted living. Pt does not feel she would be able to afford this at this time. PCP: Dr. Beard Specialists: Dr. Nava Preferred Pharmacy: [facility] Insurance: [facility] Prescription Benefit: yes LNOK: daughter and son. Address is same on facesheet, however they do not live with pt now. Reg called to correct facesheet. Living Arrangements: pt lives alone in own home, one story and per pt 7 steps into home. Pt states she sponge bathes as she is not comfortable showering when alone in home. Pt states she makes own meals, and family can assist if needed. RN CM encouraged pt to have someone with her on dc for 24-48 hr. Transportation: daughter drives pt, and if she is unable, pt has friend who can assist. DME:Home oxygen through [employer] with concentrator, portable tanks. Per [facility], script is 2L continuous but pt states she was using 6L NC @ home. BSC, shower chair, Raised toilet seat, cane, wheeled walker, Cpap. HHC: none past. MARTIN MELGAR discussed home health on dc for RN to monitor, assist with diabetic teaching and BS monitoring reinforcement. SW consult: pt may benefit from passport services, assist @ home. JOEY Castorena updated. Patient DC goals: Home with Home Health RN. Call to [facility], they can accept pt and can add PT/OT if needed. DC PLAN: Anticipate home on dc. PT/OT ordered, not completed yet. If recommended, can add for Home Health. -New Diabetic DX. Pt does not have diabetic equipment @ home, will need script for diabetic supplies on discharge. Judith ASHN RN AC
--- NOTE | 2018-07-16 12:04 | PHA.DC.MC ---
Pharmacy Service has performed discharge medication reconciliation and counseling for this patient. The patient's discharge medication list was reviewed for discrepancies and discrepancies were resolved. The patient was counseled on the following discharge medications and changes in medications for homegoing were reviewed. 1. PREDNISONE TAPER 2. LEVOFLOXACIN The Reason for Use, instructions for use, and potential side effects were reviewed for all new medications. The patient's questions regarding all of their medications were answered. The patient demonstrated some understanding but would benefit from further education and reinforcement. Home Medications Acetaminophen [Tylenol Tablet] 650 mg PO Q6H PRN PRN #0 tab 07/07/14 Lorazepam [Ativan] 0.5 mg PO Q6H PRN PRN #14 tab 07/07/14 albuterol sulfate 2.5 mg/3 mL (0.083 %) solution for nebulization 2.5 mg INHALATION Q4H #180 vial 03/11/18 albuterol sulfate HFA 90 mcg/actuation aerosol inhaler 2 puff INHALATION Q6H PRN #18 g 04/04/18 Budesonide/Formoterol 160/4.5 [Symbicort 160/4.5 Mcg Inhaler (SP)] 2 puff INHALATION BID 07/15/18 Famotidine [Pepcid] 20 mg PO BID 07/15/18 Mirtazapine [Remeron] 7.5 - 15 mg PO QHS 07/15/18 Psyllium Husk (with Sugar) [Wal-Mucil 100% Natural Fiber] 7 gm PO BID 07/15/18 Umeclidinium [place] Inhaler [Incruse Ellipta Inhaler] 1 inh INHALATION DAILY 07/15/18 busPIRone [Buspar] 15 mg PO TID 07/15/18 Prednisone 10 mg PO UD #30 tab 07/16/18 levoFLOXacin tablet [Levaquin tablet] 750 mg PO DAILY #4 tablet 07/16/18
[2018-07-16] MEDS: Insulin Lispro 100 UNIT/ML INSULN.PEN SQ ×2 (13:03→16:49)
[2018-07-16 13:20] LABS: Bedside Glucose 487 mg/dL (70-110)
--- NOTE | 2018-07-16 15:17 | CASEMGMT ---
RN RAMÓN thought patient may benefit from Passport Services. SW met with patient, introduced self and role at [facility]. SW told her about Passport program. She mentioned she needs help right now as she will be going home on insulin and she needs someone to teach her. SW told her that is home health. SW told her Passport would be in addition to home health. SW told her SW will leave the pamphlet on Passport and if she would like SW to make a referral when she is discharged SW can make a referral. Earlene CARPENTER MSW
--- NOTE | 2018-07-16 15:41 | PCM.PROGNOTE ---
<Gabriel Estrada - Last Filed: 07/16/18 15:41> Patient Problems: Active and Suspected Problems (Last Updated 07/15/18 @ 19:52 by Syed Figueroa MD) Leukocytosis (Acute) Sinus tachycardia by electrocardiogram (Acute) Hypoxia (Acute) Subjective: Pt noted breathing improved to baseline. She states she was using 5-6 lpm O2 all the time at home at baseline. She has a nonproductive cough. No fever or chills. She is a patient of Dr. Nava. She was having diarrhea and chills at home which are resolved. We planned to DC her today, however her blood sugar climbed into the high 400's and she does not previously have a hx of diabetes. - Physical Exam General: Alert, Oriented x3, Cooperative HEENT: Atraumatic, PERRLA, EOMI, Normocephalic Neck: Supple, No JVD, Negative Carotid Bruits Lungs: Diminished Cardiovascular: Regular rate, No murmurs Abdomen: Bowel Sounds Present, Soft, Non Tender Extremities: No edema, Capillary Refill Less than 3 Seconds Skin: No rashes, No breakdown Musculoskeletal: No Tenderness to Palpation of Joints or Extremities Neurological: Cranial nerves II-XII grossly intact Psych/Mental Status: Normal Affect, Appropriate, Alert and oriented to time, place, person, mood and affect Vital Signs Temp Pulse Resp BP Pulse Ox 98.0 F 107 H 16 131/68 H 98 07/16/18 15:00 07/16/18 15:00 07/16/18 15:00 07/16/18 15:00 07/16/18 15:00 Oxygen Flow Rate (L/min) 3 Oxygen Delivery Method Venturi Mask Weight: 188 lb 4.396 oz Body Mass Index (BMI) 32.1 Intake and Output for Last 24 Hours 07/14/18 07/15/18 07/16/18 23:59 23:59 23:59 Intake Total 467 / 467 879 / 879 Output Total 1850 / 1850 Balance 467 / 467 -971 / -971 Microbiology Past 72 Hours 07/15/18 23:05 Respiratory Panel (PCR) - Final Mucosa - Nasopharyngeal Laboratory Tests Past 24 Hrs 07/15/18 07/15/18 07/15/18 17:45 17:45 17:45 WBC 21.8 H RBC 3.87 L Hgb 11.2 L Hct 36.7 L MCV 94.8 MCH 28.9 MCHC 30.5 L RDW 13.7 RDW Differential 47.2 H Plt Count 250 MPV 9.7 Immature Gran % (Auto) 0.600 Neut % (Auto) 77.8 H Lymph % (Auto) 18.2 L [place] % (Auto) 3.4 Eos % (Auto) 0.0 Baso % (Auto) 0.0 Absolute Neuts (auto) 17.0 H Absolute Lymphs (auto) 3.98 Total Counted Not Reportable Sodium 135 L Potassium 5.3 H Chloride 96 L Carbon Dioxide 35.0 H Anion Gap 4 L BUN 19 H Creatinine 1.23 H Estim Creat Clear Calc 37.28 Est GFR (MDRD) Af Amer 56 L Est GFR (MDRD) Non-Af 46 L BUN/Creatinine Ratio 15.4 Glucose 211 H Hemoglobin A1c Lactic Acid Calcium 8.6 Troponin I B-Natriuretic Peptide 137.9 H Urine Color Urine Clarity Urine pH Ur Specific Ronda Urine Protein Urine Glucose (UA) Urine Ketones Urine Occult Blood Urine Nitrite Urine Bilirubin Urine Urobilinogen Ur Leukocyte Esterase Urine RBC Urine WBC Ur Squamous Epith Cells Urine Bacteria Urine Mucus 07/15/18 07/15/18 07/16/18 19:55 21:58 00:13 WBC RBC Hgb Hct MCV MCH MCHC RDW RDW Differential Plt Count MPV Immature Gran % (Auto) Neut % (Auto) Lymph % (Auto) [place] % (Auto) Eos % (Auto) Baso % (Auto) Absolute Neuts (auto) Absolute Lymphs (auto) Total Counted Sodium Potassium 3.8 Chloride Carbon Dioxide Anion Gap BUN Creatinine Estim Creat Clear Calc Est GFR (MDRD) Af Amer Est GFR (MDRD) Non-Af BUN/Creatinine Ratio Glucose Hemoglobin A1c Lactic Acid 2.0 2.1 H Calcium Troponin I < 0.015 B-Natriuretic Peptide Urine Color Urine Clarity Urine pH Ur Specific Ronda Urine Protein Urine Glucose (UA) Urine Ketones Urine Occult Blood Urine Nitrite Urine Bilirubin Urine Urobilinogen Ur Leukocyte Esterase Urine RBC Urine WBC Ur Squamous Epith Cells Urine Bacteria Urine Mucus 07/16/18 07/16/18 07/16/18 00:31 00:31 01:29 WBC RBC Hgb Hct MCV MCH MCHC RDW RDW Differential Plt Count MPV Immature Gran % (Auto) Neut % (Auto) Lymph % (Auto) [place] % (Auto) Eos % (Auto) Baso % (Auto) Absolute Neuts (auto) Absolute Lymphs (auto) Total Counted Sodium Potassium Chloride Carbon Dioxide Anion Gap BUN Creatinine Estim Creat Clear Calc Est GFR (MDRD) Af Amer Est GFR (MDRD) Non-Af BUN/Creatinine Ratio Glucose Hemoglobin A1c 7.1 H Lactic Acid Calcium Troponin I < 0.015 B-Natriuretic Peptide Urine Color Yellow Urine Clarity Clear Urine pH 6.5 Ur Specific Ronda 1.010 Urine Protein 30 H Urine Glucose (UA) Normal Urine Ketones Negative Urine Occult Blood 25 H Urine Nitrite Negative Urine Bilirubin Negative Urine Urobilinogen Normal Ur Leukocyte Esterase 25 H Urine RBC 0-5 SEEN Urine WBC 0-5 SEEN Ur Squamous Epith Cells 0-5 SEEN Urine Bacteria 0 SEEN Urine Mucus 0 SEEN 07/16/18 07/16/18 07/16/18 03:47 03:47 03:47 WBC 14.3 H RBC 3.83 L Hgb 11.0 L Hct 36.0 L MCV 94.0 MCH 28.7 MCHC 30.6 L RDW 13.5 RDW Differential 46.5 H Plt Count 200 MPV 9.8 Immature Gran % (Auto) 0.100 Neut % (Auto) 76.7 H Lymph % (Auto) 22.0 [place] % (Auto) 1.1 Eos % (Auto) 0.0 Baso % (Auto) 0.1 Absolute Neuts (auto) 10.9 H Absolute Lymphs (auto) 3.14 Total Counted Not Reportable Sodium 137 Potassium 4.2 Chloride 98 Carbon Dioxide 33.0 H Anion Gap 6 BUN 23 H Creatinine 1.22 H Estim Creat Clear Calc 37.58 Est GFR (MDRD) Af Amer 56 L Est GFR (MDRD) Non-Af 46 L BUN/Creatinine Ratio 18.9 Glucose 330 H Hemoglobin A1c Lactic Acid Calcium 8.1 L Troponin I < 0.015 B-Natriuretic Peptide Urine Color Urine Clarity Urine pH Ur Specific Ronda Urine Protein Urine Glucose (UA) Urine Ketones Urine Occult Blood Urine Nitrite Urine Bilirubin Urine Urobilinogen Ur Leukocyte Esterase Urine RBC Urine WBC Ur Squamous Epith Cells Urine Bacteria Urine Mucus 07/16/18 03:47 WBC RBC Hgb Hct MCV MCH MCHC RDW RDW Differential Plt Count MPV Immature Gran % (Auto) Neut % (Auto) Lymph % (Auto) [place] % (Auto) Eos % (Auto) Baso % (Auto) Absolute Neuts (auto) Absolute Lymphs (auto) Total Counted Sodium Potassium Chloride Carbon Dioxide Anion Gap BUN Creatinine Estim Creat Clear Calc Est GFR (MDRD) Af Amer Est GFR (MDRD) Non-Af BUN/Creatinine Ratio Glucose Hemoglobin A1c 7.0 H Lactic Acid Calcium Troponin I B-Natriuretic Peptide Urine Color Urine Clarity Urine pH Ur Specific Ronda Urine Protein Urine Glucose (UA) Urine Ketones Urine Occult Blood Urine Nitrite Urine Bilirubin Urine Urobilinogen Ur Leukocyte Esterase Urine RBC Urine WBC Ur Squamous Epith Cells Urine Bacteria Urine Mucus POC Glucose 07/16/18 07/16/18 07/16/18 12:17 11:17 05:49 POC Glucose 487 H* 483 H* 293 H 07/15/18 22:42 POC Glucose 296 H Medical Necessity - Tobacco Use Smoking Status: Former smoker Assessment/Plan All Active Problems (Last Updated 07/15/18 @ 19:52 by Syed Figueroa MD) Leukocytosis (Acute) Sinus tachycardia by electrocardiogram (Acute) Hypoxia (Acute) 1. Acute on chronic hypoxic resp failure 2/2 Acute COPD exacerbation - Steroids, aerosols. Down to 2.5 lpm o2. Resp panel negative. D/w Doctor Zachary. Will do walking O2 test and give her new setting for rest/ambulation, then repeat in the office with Ana Paula in 1 week. Leukocytosis improving. Continue course of levaquin. Trop neg. Co2 33. LA 2.1 - avoid metformin for now. 2. DMt2 - new dx, with hyperglycemia - started mealtime and long acting regimens with SSI. C/s clinical resource coordinator. Will need supples going home for testing 3. Chronic diastolic CHF - no exacerbation 4. Anxiety - stable 5. Crohns - in remission DVT ppx: lovenox DC planning: Likely home tomorrow This patient was seen by Gabriel Estrada PA-C under the supervision of Dr. Card <Leon Card - Last Filed: 07/16/18 17:11> - Physical Exam Vital Signs Temp Pulse Resp BP Pulse Ox 98.0 F 107 H 16 131/68 H 98 07/16/18 15:00 07/16/18 15:00 07/16/18 15:00 07/16/18 15:00 07/16/18 15:00 Oxygen Flow Rate (L/min) 3 Oxygen Delivery Method Venturi Mask Weight: 85.4 kg Body Mass Index (BMI) 32.1 Intake and Output for Last 24 Hours 07/14/18 07/15/18 07/16/18 23:59 23:59 23:59 Intake Total 467 / 467 879 / 879 Output Total 1850 / 1850 Balance 467 / 467 -971 / -971 Microbiology Past 72 Hours 07/15/18 23:05 Respiratory Panel (PCR) - Final Mucosa - Nasopharyngeal Laboratory Tests Past 24 Hrs 07/15/18 07/15/18 07/15/18 17:45 17:45 17:45 WBC 21.8 H RBC 3.87 L Hgb 11.2 L Hct 36.7 L MCV 94.8 MCH 28.9 MCHC 30.5 L RDW 13.7 RDW Differential 47.2 H Plt Count 250 MPV 9.7 Immature Gran % (Auto) 0.600 Neut % (Auto) 77.8 H Lymph % (Auto) 18.2 L [place] % (Auto) 3.4 Eos % (Auto) 0.0 Baso % (Auto) 0.0 Absolute Neuts (auto) 17.0 H Absolute Lymphs (auto) 3.98 Total Counted Not Reportable Sodium 135 L Potassium 5.3 H Chloride 96 L Carbon Dioxide 35.0 H Anion Gap 4 L BUN 19 H Creatinine 1.23 H Estim Creat Clear Calc 37.28 Est GFR (MDRD) Af Amer 56 L Est GFR (MDRD) Non-Af 46 L BUN/Creatinine Ratio 15.4 Glucose 211 H Hemoglobin A1c Lactic Acid Calcium 8.6 Troponin I B-Natriuretic Peptide 137.9 H Urine Color Urine Clarity Urine pH Ur Specific Ronda Urine Protein Urine Glucose (UA) Urine Ketones Urine Occult Blood Urine Nitrite Urine Bilirubin Urine Urobilinogen Ur Leukocyte Esterase Urine RBC Urine WBC Ur Squamous Epith Cells Urine Bacteria Urine Mucus 07/15/18 07/15/18 07/16/18 19:55 21:58 00:13 WBC RBC Hgb Hct MCV MCH MCHC RDW RDW Differential Plt Count MPV Immature Gran % (Auto) Neut % (Auto) Lymph % (Auto) [place] % (Auto) Eos % (Auto) Baso % (Auto) Absolute Neuts (auto) Absolute Lymphs (auto) Total Counted Sodium Potassium 3.8 Chloride Carbon Dioxide Anion Gap BUN Creatinine Estim Creat Clear Calc Est GFR (MDRD) Af Amer Est GFR (MDRD) Non-Af BUN/Creatinine Ratio Glucose Hemoglobin A1c Lactic Acid 2.0 2.1 H Calcium Troponin I < 0.015 B-Natriuretic Peptide Urine Color Urine Clarity Urine pH Ur Specific Ronda Urine Protein Urine Glucose (UA) Urine Ketones Urine Occult Blood Urine Nitrite Urine Bilirubin Urine Urobilinogen Ur Leukocyte Esterase Urine RBC Urine WBC Ur Squamous Epith Cells Urine Bacteria Urine Mucus 07/16/18 07/16/18 07/16/18 00:31 00:31 01:29 WBC RBC Hgb Hct MCV MCH MCHC RDW RDW Differential Plt Count MPV Immature Gran % (Auto) Neut % (Auto) Lymph % (Auto) [place] % (Auto) Eos % (Auto) Baso % (Auto) Absolute Neuts (auto) Absolute Lymphs (auto) Total Counted Sodium Potassium Chloride Carbon Dioxide Anion Gap BUN Creatinine Estim Creat Clear Calc Est GFR (MDRD) Af Amer Est GFR (MDRD) Non-Af BUN/Creatinine Ratio Glucose Hemoglobin A1c 7.1 H Lactic Acid Calcium Troponin I < 0.015 B-Natriuretic Peptide Urine Color Yellow Urine Clarity Clear Urine pH 6.5 Ur Specific Ronda 1.010 Urine Protein 30 H Urine Glucose (UA) Normal Urine Ketones Negative Urine Occult Blood 25 H Urine Nitrite Negative Urine Bilirubin Negative Urine Urobilinogen Normal Ur Leukocyte Esterase 25 H Urine RBC 0-5 SEEN Urine WBC 0-5 SEEN Ur Squamous Epith Cells 0-5 SEEN Urine Bacteria 0 SEEN Urine Mucus 0 SEEN 07/16/18 07/16/18 07/16/18 03:47 03:47 03:47 WBC 14.3 H RBC 3.83 L Hgb 11.0 L Hct 36.0 L MCV 94.0 MCH 28.7 MCHC 30.6 L RDW 13.5 RDW Differential 46.5 H Plt Count 200 MPV 9.8 Immature Gran % (Auto) 0.100 Neut % (Auto) 76.7 H Lymph % (Auto) 22.0 [place] % (Auto) 1.1 Eos % (Auto) 0.0 Baso % (Auto) 0.1 Absolute Neuts (auto) 10.9 H Absolute Lymphs (auto) 3.14 Total Counted Not Reportable Sodium 137 Potassium 4.2 Chloride 98 Carbon Dioxide 33.0 H Anion Gap 6 BUN 23 H Creatinine 1.22 H Estim Creat Clear Calc 37.58 Est GFR (MDRD) Af Amer 56 L Est GFR (MDRD) Non-Af 46 L BUN/Creatinine Ratio 18.9 Glucose 330 H Hemoglobin A1c Lactic Acid Calcium 8.1 L Troponin I < 0.015 B-Natriuretic Peptide Urine Color Urine Clarity Urine pH Ur Specific Ronda Urine Protein Urine Glucose (UA) Urine Ketones Urine Occult Blood Urine Nitrite Urine Bilirubin Urine Urobilinogen Ur Leukocyte Esterase Urine RBC Urine WBC Ur Squamous Epith Cells Urine Bacteria Urine Mucus 07/16/18 03:47 WBC RBC Hgb Hct MCV MCH MCHC RDW RDW Differential Plt Count MPV Immature Gran % (Auto) Neut % (Auto) Lymph % (Auto) [place] % (Auto) Eos % (Auto) Baso % (Auto) Absolute Neuts (auto) Absolute Lymphs (auto) Total Counted Sodium Potassium Chloride Carbon Dioxide Anion Gap BUN Creatinine Estim Creat Clear Calc Est GFR (MDRD) Af Amer Est GFR (MDRD) Non-Af BUN/Creatinine Ratio Glucose Hemoglobin A1c 7.0 H Lactic Acid Calcium Troponin I B-Natriuretic Peptide Urine Color Urine Clarity Urine pH Ur Specific Ronda Urine Protein Urine Glucose (UA) Urine Ketones Urine Occult Blood Urine Nitrite Urine Bilirubin Urine Urobilinogen Ur Leukocyte Esterase Urine RBC Urine WBC Ur Squamous Epith Cells Urine Bacteria Urine Mucus POC Glucose 07/16/18 07/16/18 07/16/18 12:17 11:17 05:49 POC Glucose 487 H* 483 H* 293 H 07/15/18 22:42 POC Glucose 296 H Assessment/Plan This patient was seen in conjunction with Gabriel Estrada PA-C . I have independently interviewed and examined the patient and reviewed pertinent historical, laboratory, and other data. Please refer to Gabriel Estrada PA-C note for details of this patient's presentation, findings, and recommendations. I have reviewed Gabriel Estrada PA-C note and concur with documented findings. In brief, patient is a 67-year-old lady with history of chronic hypoxic respiratory failure secondary to COPD on baseline home O2 who presented with progressive shortness of breath and assessment of COPD exacerbation made admitted to a monitored bed for further management. Patient was found to have significant hyperglycemia hemoglobin A1c subsequently checked came back at 7.0 consistent with new onset diabetes mellitus type 2 Physical Examination: GENERAL: cooperative HEENT: Atraumatic; moist oral mucosa EYES; Anicteric, Normal Conjunctiva NECK; supple, normal thyroid, no distended JVD. RESPIRATORY: Diminished to auscultation bilaterally, CARDIOVASCULAR: Regular S1 S2, no audible murmurs NEURO: Awake; no lateralizing signs. SKIN: No Rash PSYCH; Normal affect Assessment: 1. COPD with acute exacerbation 2. Chronic hypoxic respiratory failure 3. New onset diabetes mellitus type 2 4. Diastolic congestive heart failure 5. Crohn's disease 6. DVT prophylaxis SC Lovenox Recommendations: 1. I have discussed the results of my overview and impressions with the patient 2. Options for management were reviewed Code Visit Inpatient E&M: 11187 [facility] Hosp L3
[2018-07-16 17:32] LABS: Bedside Glucose 367 mg/dL (70-110)
[2018-07-16] MEDS: Loperamide 2 MG Capsule PO (17:57)
[2018-07-16] MEDS: Mirtazapine 15 MG Tablet 7.5 MG PO (21:37)
[2018-07-16] MEDS: 0.9% NaCl Peripheral Flush Adult/Peds IV (21:42)
[2018-07-16 23:01] LABS: Bedside Glucose 364 mg/dL (70-110)
[2018-07-17] VITALS (10 sets, daily range): BP systolic 137–148; BP diastolic 62–79; PULSE 78–114; RESP 16–20; TEMP 36.8–37.4; O2SAT 94–98
[2018-07-17] MEDS: Ipratropium/Albuterol Sulfate 3 ML AMPUL.NEB INHALATION ×4 (03:16→15:12)
[2018-07-17] MEDS: busPIRone 15 MG TABLET PO ×2 (05:50→15:39)
[2018-07-17] MEDS: LORazepam 0.5 MG Tablet PO ×2 (05:59→15:41)
[2018-07-17 06:48] LABS: Anion Gap 6 (5-15); BUN 38 mg/dL (7-18); Calcium,Total 8.9 mg/dL (8.5-10.1); Chloride 101 mmol/L (98-107); Creatinine, Serum 1.31 mg/dL (0.55-1.02); EST Glomerular Filtration Rate 43 mL/min (>60); Est Glom Filt Rate - Afr Amer 52 mL/min (>60); Glucose 347 mg/dL (74-106); Potassium 4.3 mmol/L (3.5-5.1); Sodium Level 138 mmol/L (136-145)
[2018-07-17 06:55] LABS: Bedside Glucose 331 mg/dL (70-110)
[2018-07-17] MEDS: Insulin Lispro 100 UNIT/ML INSULN.PEN SQ ×3 (07:20→17:17)
[2018-07-17] MEDS: Insulin Lispro 100 UNIT/ML INSULN.PEN SC ×3 (07:21→17:17)
[2018-07-17] MEDS: Psyllium 1 PACKET PO (09:26)
[2018-07-17] MEDS: Enoxaparin 30 MG/0.3 ML Syringe SC (09:26)
[2018-07-17] MEDS: guaiFENesin 600 MG Tablet PO (09:26)
[2018-07-17] MEDS: Famotidine 20 MG Tablet PO (09:26)
[2018-07-17] MEDS: Loperamide 2 MG Capsule PO ×2 (09:32→15:41)
--- NOTE | 2018-07-17 09:47 | DCINST_ITS ---
- Discharge Diagnoses Current Active Problems: Current Active and Chronic Problems (Last Updated 07/15/18 @ 19:52 by Syed Figueroa MD) COPD with exacerbation (Chronic) Leukocytosis (Acute) Sinus tachycardia by electrocardiogram (Acute) Hypoxia (Acute) You will use the following diet at home:: Calorie/Carbohydrate Controlled (specify 1200, 1400, etc) - 1800 calories per day, Cardiac - 2500mg-3000mg sodium daily Your food should be the consistency of: Regular Your liquids should be the consistency of: Regular/Thin Discharge Activity: Return to Normal Activity Additional Instructions: Check blood sugar daily, every morning when you wake up before breakfast, and eat meal before you eat. Record these in a log with the date and time of test. Present them to your family medicine provider at follow up. Allergies/Adverse Reactions: Allergies No Known Allergies Allergy (Verified 07/15/18 16:57) Medications to take at Discharge Acetaminophen [Tylenol Tablet] 650 mg PO Q6H PRN PRN #0 tab 07/07/14 Lorazepam [Ativan] 0.5 mg PO Q6H PRN PRN #14 tab 07/07/14 albuterol sulfate 2.5 mg/3 mL (0.083 %) solution for nebulization 2.5 mg INHALATION Q4H #180 vial 03/11/18 albuterol sulfate HFA 90 mcg/actuation aerosol inhaler 2 puff INHALATION Q6H PRN #18 g 04/04/18 Budesonide/Formoterol 160/4.5 [Symbicort 160/4.5 Mcg Inhaler (SP)] 2 puff INHALATION BID 07/15/18 Famotidine [Pepcid] 20 mg PO BID 07/15/18 Mirtazapine [Remeron] 7.5 - 15 mg PO QHS 07/15/18 Psyllium Husk (with Sugar) [Wal-Mucil 100% Natural Fiber] 7 gm PO BID 07/15/18 Umeclidinium [place] Inhaler [Incruse Ellipta Inhaler] 1 inh INHALATION DAILY 07/15/18 busPIRone [Buspar] 15 mg PO TID 07/15/18 Loperamide [Imodium] 8 mg PO DAILY 07/16/18 Prednisone 10 mg PO UD #30 tab 07/16/18 levoFLOXacin tablet [Levaquin tablet] 750 mg PO DAILY #4 tablet 04/23/19 Insulin Glargine [Lantus SoloStar Pen] 15 units SC BID #1 pen 07/17/18 Insulin Glargine [Lantus SoloStar Pen] 15 units SC BREAKFAST #0 pen 07/17/18 Insulin Lispro [Humalog KwikPen] 5 unit SQ BREAKFAST #1 insuln.pen 07/17/18 Insulin Lispro [Humalog KwikPen] 5 unit SQ DINNER insuln.pen 07/17/18 Insulin Lispro [Humalog KwikPen] 5 unit SQ LUNCH insuln.pen 07/17/18 The following prescriptions were given: Insulin Glargine [Lantus SoloStar Pen] 15 units SC BID #1 pen Insulin Lispro [Humalog KwikPen] 5 unit SQ BREAKFAST #1 insuln.pen levoFLOXacin tablet [Levaquin tablet] 750 mg PO DAILY #4 tablet Prednisone 10 mg PO UD #30 tab Orders to be completed after discharge: Glucometer Location: None Selected Primary Care Physician: Darien Beadr DO [Primary Care Provider] - Please follow up with your Primary Care Physician in: 2 weeks Test Results: Test results from this visit will be discussed in further detail at your follow- up appointment, if applicable. Please Follow Up With: Ana Paula Elliott NP-C When: 1 week Please Follow Up With: Darien Beard DO Proposed Discharge Date: 07/17/18
--- NOTE | 2018-07-17 10:56 | CASEMGMT ---
Call to Mamie at [facility] to notify of order for RN, PT/OT, aide and that pt to be discharged today as new diabetic, voices understanding. Call to [facility] Alia and alicia Mendez, Lantus and Humalog are not on the formulary for pt's insurance but states that Basaglar and Novolog pens are on the formulary. Honey SUMMERS aware and on the phone at this time to give verbal order to change to the meds on pt's formulary. Alicia Mendez at [facility], they do not have the Basaglar in stock until tomorrow afternoon but the [facility] does and pt can go there to get all her meds once discharged. Call to pharmacist at [facility] and she does verify at this time that they do have the Basaglar in stock and pt can case picker all her meds there. Cory SALAZAR updated at this time, voices understanding and states will notify pt. Wendy SALAZAR CM
--- NOTE | 2018-07-17 11:28 | CASEMGMT ---
Pt updated on all discharge planning at this time and pt voices understanding. Pt voices no further questions/concerns/needs at this time. Wendy SALAZAR CM
[2018-07-17 12:11] LABS: Bedside Glucose 371 mg/dL (70-110)
--- NOTE | 2018-07-17 14:12 | DS.PCM_ITS ---
<Gabriel Estrada - Last Filed: 07/17/18 14:07> Discharge Date and Diagnosis - Problem List Patient Problems: Active and Suspected Problems (Last Updated 07/15/18 @ 19:52 by Syed Figueroa MD) Leukocytosis (Acute) Sinus tachycardia by electrocardiogram (Acute) Hypoxia (Acute) Date of Admission: 07/15/18 Date of Discharge: 07/17/18 - Primary Discharge Diagnosis Active and Suspected Problems (Last Updated 07/15/18 @ 19:52 by Syed Figueroa MD) Acute on chronic hypoxic respiratory failure 2/2 Acute COPD exacerbation DMt2 - newly diagnosed with hyperglycemia Chronic diastolic CHF CKDIII Crohns Anxiety - Secondary Discharge Diagnosis Chronic Problems (Last Updated 07/15/18 @ 19:52 by Syed Figueroa MD) COPD with exacerbation (Chronic) Chronic diastolic CHF (congestive heart failure) (Chronic) Stage 4 very severe COPD by GOLD classification (Chronic) FEV1 23% predicted ileastomy reversal (Chronic) Chronic hypoxemic respiratory failure (Chronic) Anxiety disorder (Chronic) Crohn's disease in remission (Chronic) COPD (chronic obstructive pulmonary disease) (Chronic) Hospital Course and Treatment Imaging Results: RAD/Chest PA and Lateral IMPRESSION: Streaky fibrotic or atelectatic changes of the lung bases, new in the interval. Calcified plaques of the aortic arch. Operations: None Procedures: None Summary of Care Provided: Hospital Course: The patient is a 67 year old F past medical history of CKD stage III, COPD, chronic hypoxic respiratory failure supposed to be on 2 L/min oxygen at home all the time, anxiety, who presented to the emergency room with increased shortness of breath and pleuritic chest pain. She was only supposed to be using 2 L/min of oxygen at home however she had been using 5 L and on arrival she was 87%. She was admitted for COPD exacerbation and started on IV Solu-Medrol and aerosols. She also had an elevated white blood cell count and was given empiric Levaquin. Chest x-ray did not did reveal reveal an infiltrate. She did not have a fever. Respiratory panel was negative. She responded very well to therapy overnight. Her breathing was markedly improved by the following day and she was weaned to 2 L/min oxygen which was revealed to be her actual baseline. The patient was not sure what she was supposed to be on at home. I discussed this with Dr. Sharma, the patient normally follows with Dr. Nava. He recommended that we ambulate the patient and provide her with new settings, and when she is over her acute exacerbation she can be seen in the office in 1 week's time and have a repeat walking oximetry done. Despite the patient's breathing improving, she had a severe elevation of her blood sugar. She had no previous diagnosis of diabetes. Her blood sugar went into the high 400 range. She was started on long-acting insulin, mealtime insulin, sliding scale insulin. When she came in she had an elevated lactate so metformin was not felt to be indicated at this time. She was kept overnight to achieve safe glucose levels. She was transitioned to oral prednisone. She was provided with diabetic education. We prescribed her mealtime and long-acting insulin. We also prescribed her a glucometer, test strips, lancets, alcohol wipes. She was also given evaluation by dietitian. She was trained on proper use of the glucometer. She was discharged home in stable condition. She was to follow-up with her PCP in 1-2 weeks, and follow-up with pulmonology in 1 week. I advised her to check her blood sugar 3 times a day and record it in a journal to present to her PCP at follow-up. This patient was seen by Gabriel Estrada PA-C under the supervision of Doctor Card. [] Patient Problems: Active and Suspected Problems (Last Updated 07/15/18 @ 19:52 by Syed Figueroa MD) Leukocytosis (Acute) Sinus tachycardia by electrocardiogram (Acute) Hypoxia (Acute) - Physical Exam General: Alert, Oriented x3, Cooperative HEENT: Atraumatic, PERRLA, EOMI, Normocephalic Neck: Supple, No JVD, Negative Carotid Bruits Lungs: Clear to auscultation, Diminished Cardiovascular: Regular rate, No murmurs Abdomen: Bowel Sounds Present, Soft, Non Tender Extremities: No edema, Capillary Refill Less than 3 Seconds Skin: No rashes, No breakdown Musculoskeletal: No Tenderness to Palpation of Joints or Extremities Neurological: Cranial nerves II-XII grossly intact Psych/Mental Status: Normal Affect, Appropriate, Alert and oriented to time, place, person, mood and affect Vital Signs Temp Pulse Resp BP Pulse Ox 98.8 F 98 16 143/62 H 94 07/17/18 09:20 07/17/18 11:15 07/17/18 11:15 07/17/18 09:20 07/17/18 09:20 Oxygen Flow Rate (L/min) 3 Oxygen Delivery Method Nasal Cannula Weight: 188 lb 4.396 oz Body Mass Index (BMI) 32.1 Intake and Output for Last 24 Hours 07/15/18 07/16/18 07/17/18 23:59 23:59 23:59 Intake Total 467 / 467 879 / 879 360 / 360 Output Total 2049 / 2049 1500 / 1500 Balance 467 / 467 -1171 / -1171 -1140 / -1140 Microbiology Past 72 Hours 07/16/18 14:45 Gram Stain - Final Sputum, Expectorated/Coughed Respiratory Culture - Preliminary Appears to be normal respiratory adolfo. Further studies to follow. 07/15/18 23:05 Respiratory Panel (PCR) - Final Mucosa - Nasopharyngeal Laboratory Tests Past 24 Hrs 07/17/18 05:58 Sodium 138 Potassium 4.3 Chloride 101 Carbon Dioxide 31.0 Anion Gap 6 BUN 38 H Creatinine 1.31 H Estim Creat Clear Calc 35.00 Est GFR (MDRD) Af Amer 52 L Est GFR (MDRD) Non-Af 43 L BUN/Creatinine Ratio 29.0 H Glucose 347 H Calcium 8.9 POC Glucose 07/17/18 07/17/18 07/16/18 11:42 06:42 21:35 POC Glucose 371 H 331 H 364 H 07/16/18 16:45 POC Glucose 367 H Discharge Diet: Low fat/ Low Cholesterol, 1800 Calorie Control Diet, 2000 mg Sodium Diet Discharge Activity: Return to Normal Activity Home Medications: Medications to take at Discharge Acetaminophen [Tylenol Tablet] 650 mg PO Q6H PRN PRN #0 tab 07/07/14 Lorazepam [Ativan] 0.5 mg PO Q6H PRN PRN #14 tab 07/07/14 albuterol sulfate 2.5 mg/3 mL (0.083 %) solution for nebulization 2.5 mg INHALATION Q4H #180 vial 03/11/18 albuterol sulfate HFA 90 mcg/actuation aerosol inhaler 2 puff INHALATION Q6H PRN #18 g 04/04/18 Budesonide/Formoterol 160/4.5 [Symbicort 160/4.5 Mcg Inhaler (SP)] 2 puff INHALATION BID 07/15/18 Famotidine [Pepcid] 20 mg PO BID 07/15/18 Mirtazapine [Remeron] 7.5 - 15 mg PO QHS 07/15/18 Psyllium Husk (with Sugar) [Wal-Mucil 100% Natural Fiber] 7 gm PO BID 07/15/18 Umeclidinium Reform Inhaler [Incruse Ellipta Inhaler] 1 inh INHALATION DAILY 07/15/18 busPIRone [Buspar] 15 mg PO TID 07/15/18 Loperamide [Imodium] 8 mg PO DAILY 07/16/18 Prednisone 10 mg PO UD #30 tab 07/16/18 levoFLOXacin tablet [Levaquin tablet] 750 mg PO DAILY #4 tablet 07/16/18 Insulin Glargine [Lantus SoloStar Pen] 15 units SC BID #1 pen 07/17/18 Insulin Glargine [Lantus SoloStar Pen] 15 units SC BREAKFAST #0 pen 07/17/18 Insulin Lispro [Humalog KwikPen] 5 unit SQ BREAKFAST #1 insuln.pen 07/17/18 Insulin Lispro [Humalog KwikPen] 5 unit SQ DINNER insuln.pen 07/17/18 Insulin Lispro [Humalog KwikPen] 5 unit SQ LUNCH insuln.pen 07/17/18 Following Prescrptions Were Given to Patient: Insulin Glargine [Lantus SoloStar Pen] 15 units SC BID #1 pen Insulin Lispro [Humalog KwikPen] 5 unit SQ BREAKFAST #1 insuln.pen levoFLOXacin tablet [Levaquin tablet] 750 mg PO DAILY #4 tablet Prednisone 10 mg PO UD #30 tab Other Amb Orders: Glucometer Location: None Selected Primary Care Physician: Darien Beard DO [Primary Care Provider] - Please follow up with your Primary Care Physician in: 2 weeks Please Follow Up With: Ana Paula Elliott NP-C When: 1 week Please Follow Up With: Darien Beard DO Disposition: Home Minutes spent on discharge:: 35 Patient Condition:: Stable Medical Necessity - Tobacco Use Smoking Status: Former smoker Meaningful Use Info Meaningful Use Diagnoses (Choose all that apply): None applicable <Leon Card - Last Filed: 07/17/18 14:28> Discharge Date and Diagnosis - Primary Discharge Diagnosis Active and Suspected Problems (Last Updated 07/15/18 @ 19:52 by Syed Figueroa MD) Leukocytosis (Acute) Sinus tachycardia by electrocardiogram (Acute) Hypoxia (Acute) - Secondary Discharge Diagnosis Chronic Problems (Last Updated 07/15/18 @ 19:52 by Syed Figueroa MD) COPD with exacerbation (Chronic) Chronic diastolic CHF (congestive heart failure) (Chronic) Stage 4 very severe COPD by GOLD classification (Chronic) FEV1 23% predicted ileastomy reversal (Chronic) Chronic hypoxemic respiratory failure (Chronic) Anxiety disorder (Chronic) Crohn's disease in remission (Chronic) COPD (chronic obstructive pulmonary disease) (Chronic) Hospital Course and Treatment Summary of Care Provided: This patient was seen in conjunction with Gabriel Estrada PA-C . I have independently interviewed and examined the patient and reviewed pertinent historical, laboratory, and other data. Please refer to Gabriel Estrada PA-C note for details of this patient's presentation, findings, and recommendations. I have reviewed Gabriel Estrada PA-C note and concur with documented findings. In brief, patient is a 67-year-old lady with history of chronic hypoxic respiratory failure secondary to COPD on baseline home O2 who presented with progressive shortness of breath and assessment of COPD exacerbation made ad mitted to a monitored bed for further management. Patient was found to have significant hyperglycemia hemoglobin A1c subsequently checked came back at 7.0 consistent with new onset diabetes mellitus type 2 Assessment: 1. COPD with acute exacerbation 2. Chronic hypoxic respiratory failure 3. New onset diabetes mellitus type 2 4. Diastolic congestive heart failure 5. Crohn's disease 6. DVT prophylaxis SC Lovenox Hospital course: As documented above by Gabriel Estrada - Physical Exam Vital Signs Temp Pulse Resp BP Pulse Ox 98.8 F 98 16 143/62 H 94 07/17/18 09:20 07/17/18 11:15 07/17/18 11:15 07/17/18 09:20 07/17/18 09:20 Oxygen Flow Rate (L/min) 3 Oxygen Delivery Method Nasal Cannula Weight: 85.4 kg Body Mass Index (BMI) 32.1 Intake and Output for Last 24 Hours 07/15/18 07/16/18 07/17/18 23:59 23:59 23:59 Intake Total 467 / 467 879 / 879 360 / 360 Output Total 2049 / 2049 1500 / 1500 Balance 467 / 467 -1171 / -1171 -1140 / -1140 Microbiology Past 72 Hours 07/16/18 14:45 Gram Stain - Final Sputum, Expectorated/Coughed Respiratory Culture - Preliminary Appears to be normal respiratory adolfo. Further studies to follow. 07/15/18 23:05 Respiratory Panel (PCR) - Final Mucosa - Nasopharyngeal Laboratory Tests Past 24 Hrs 07/17/18 05:58 Sodium 138 Potassium 4.3 Chloride 101 Carbon Dioxide 31.0 Anion Gap 6 BUN 38 H Creatinine 1.31 H Estim Creat Clear Calc 35.00 Est GFR (MDRD) Af Amer 52 L Est GFR (MDRD) Non-Af 43 L BUN/Creatinine Ratio 29.0 H Glucose 347 H Calcium 8.9 POC Glucose 07/17/18 07/17/18 07/16/18 11:42 06:42 21:35 POC Glucose 371 H 331 H 364 H 07/16/18 16:45 POC Glucose 367 H Code Visit Inpatient E&M: [id number] Disch Hosp
[2018-07-17] MEDS: Acetaminophen 325 MG Tablet 650 MG PO (16:54)
[2018-07-17] MEDS: predniSONE 20 MG Tablet PO (16:54)
[2018-07-17 17:35] LABS: Bedside Glucose 387 mg/dL (70-110)
--- NOTE | 2018-07-19 14:29 | CASEMGMT ---
MARTIN MELGAR DC PHONE CALL DC DATE: 07/17/18 DC Disposition: Home with Home Health LACE/STRATA: 12/26 Intro role of CM to patient. Pt states she had difficulty getting prescriptions and understanding script, but her daughter and Home Health nurse were able to assist. Now pt states she has prescriptions, f/u and understands her medications. No further questions. Judith Wiggins RN ACM
== END 2018-07-17 19:40 | disposition home or self-care (01) | DRG 189 ==
LOC: ED 19:35 → PCU 20:02
PROVIDERS: Physician Assistant; Admitting Provider Hospitalist; Emergency Provider Emergency Medicine; Family Provider Family Medicine; PCP Family Medicine; Visit Provider Internal Medicine
DX: J96.21 Acute and chronic respiratory failure with hypoxia (principal); J44.1 Chronic obstructive pulmonary disease with (acute) exacerbation; K50.90 Crohn's disease, unspecified, without complications; I50.32 Chronic diastolic (congestive) heart failure; Z99.81 Dependence on supplemental oxygen; E87.5 Hyperkalemia; N18.3 Chronic kidney disease, stage 3 (moderate); F41.9 Anxiety disorder, unspecified; E11.65 Type 2 diabetes mellitus with hyperglycemia; Z87.891 Personal history of nicotine dependence
CPT/HCPCS: 36415; 71046; 80048; 81001; 82962; 83036; 83605; 83880; 84132; 84484; 85025; 87040; 87070; 87086; 87205; 87633; 93005; 94640; 94667; 94668; 97162; 97166; 97530; 97535; 97802; 99285; J7030; A4216